=== PATIENT | male | born 1935 | race Caucasian/White ===

== ENCOUNTER 2017-12-01 14:00 | Emergency (ER) | payer BC, MEDICARE ==
--- NOTE | 2017-12-01 15:21 | CT ---
EXAMINATION TYPE: CT brain brendon samson DATE OF EXAM: 12/01/2017 COMPARISON: None HISTORY: Slip and fall. Frontal injury. Headache. Neck pain. CT DLP: 1596 mGycm Automated exposure control for dose reduction was used. TECHNIQUE: CT scan of the head and cervical spine are performed without contrast. FINDINGS: There is cerebral cortical atrophy. There is no mass effect nor midline shift. There is no sign of intracranial hemorrhage. There is mild frontal scalp soft tissue swelling. Calvarium is intac t. Cervical vertebra have fairly normal alignment. There is degenerative disc space narrowing at C5-6 C6 -7. There are calcified posterior disc herniations from C3 to C6. There is some narrowing of the spin al canal. Facet joints are intact. There is multilevel hypertrophic facet arthropathy. Skull base is intact. There is moderate hypertrophic anterior spurring. IMPRESSION: Cerebral atrophy. No acute intracranial abnormality. Spondylotic changes in the cervical spine. 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 No fracture.
[2017-12-01] MEDS ORDERED: TETANUS-DIPHTHERIA TOX (PF) 0.5 ML VIAL IM ONE (16:07)
--- NOTE | 2017-12-01 16:08 | ED ---
General Adult HPI - General Chief complaint: Fall Stated complaint: Fall, Head Lac Time Seen by Provider: 12/01/17 14:35 Source: patient, EMS, RN notes reviewed Mode of arrival: EMS Limitations: no limitations - History of Present Illness Initial comments: Chief complaint history of present illness 89-year-old male reports that he was standing on his staircase at home and taking water from a washing machine didn' t completely empty. This was outside. Slipped and fell. He presents emergency room with abrasion to the left side of his head. Denies any loss of consciousness. A neighbor called EMS. - Related Data Home Medications Medication Instructions Recorded Confirmed Gabapentin [Neurontin] 100 mg PO TID 12/01/17 12/01/17 glipiZIDE XL [Glucotrol Xl] 5 mg PO DAILY 12/01/17 12/01/17 metFORMIN HCL [Glucophage] 1,000 mg PO BID 12/01/17 12/01/17 Allergies Allergy/AdvReac Type Severity Reaction Status Date / Time No Known Allergies Allergy Verified 11/21/15 09:06 Review of Systems ROS Statement: Those systems with pertinent positive or pertinent negative responses have been documented in the HPI. Review of systems. Patient does not even complain of headache. Does have a significant abrasion to the left side of his head. No change in visual acuity. Patient does present with a Ivanhoe collar in place. Patient denies any chest pain back pain lower abdominal pain or lower extremity pain upper extremities are moving freely without difficulty. No weakness reported now or at the time of the incident. All systems were reviewed. Past medical problems significant for coronary artery disease, diabetes mellitus, hypertension. Surgeries appendectomy. The patient is somewhat forgetful. No known ALLERGIES. ROS Other: All systems not noted in ROS Statement are negative. Past Medical History Past Medical History: Coronary Artery Disease (CAD), Diabetes Mellitus, Hypertension Additional Past Medical History / Comment(s): poor historian History of Any Multi-Drug Resistant Organisms: None Reported Past Surgical History: Appendectomy Additional Past Surgical History / Comment(s): pt unable to recall "they were so long ago" Past Psychological History: No Psychological Hx Reported Smoking Status: Never smoker Past Alcohol Use History: Rare Past Drug Use History: None Reported General Exam - General Exam Comments Initial Comments: General: The patient is awake and alert, arrived EMS. Patient fell outside at home resulting in abrasions to left side of his head. No apparent loss of consciousness. Patient is not on blood thinners. Vital signs temperature 98.0 pulse 99 respiratory rate 18 blood pressure 185/69 pulse ox 90% room air Eye: Pupils are equal, round and reactive to light, extra-ocular movements are intact ; there is normal conjunctiva bilaterally. No signs of icterus. Ears, nose, mouth and throat: There are moist mucous membranes and no oral lesions. 4 cm x 4 cm abrasion to the left parietal area. Neck: The neck is supple, no complaint of neck pain Cardiovascular: There is a regular rate and rhythm. No murmur, rub or gallop is appreciated. Respiratory: Lungs are clear to auscultation, respirations are non-labored, breath sounds are equal. No wheezes, stridor, rales, or rhonchi. Gastrointestinal: Soft, non-distended, non-tender abdomen without masses or organomegaly noted. There is no rebound or guarding present. No CVA tenderness. Bowel sounds are unremarkable. Back: There is no tenderness to palpation in the midline. There is no obvious deformity. No rashes noted. Patient complains of chronic foot pain since he was age 20 . Musculoskeletal: Normal ROM, no tenderness, There is no pedal edema. There is no calf tenderness or swelling. Sensation intact. Pulses equal bilaterally 2+. Neurological: CN II-XII intact, There are no obvious motor or sensory deficits. Coordination appears grossly intact. Speech is normal. No focal or lateralizing findings Skin: Abrasion scalp as noted above Psychiatric: Cooperative, appropriate mood Limitations: no limitations Course Vital Signs 12/01/17 12/01/17 14:01 14:11 Temperature 98 F Pulse Rate 97 99 Respiratory 18 18 Rate Blood Pressure 207/84 185/69 O2 Sat by Pulse 99 98 Oximetry Medical Decision Making - Medical Decision Making Medical decision making; 22-year-old male reports had a slip and fall at home on his steps falling forward causing abrasion to his head. Denies any loss of consciousness. CT of the brain and cervical spine were done and reviewed by radiologist entire report was reviewed significant final impression is cervical atrophy. No acute intracranial abnormality. Spondylotic changes in the cervical spine. 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 No fracture. As read by Dr. Fernandez. Repeat neurological exam, no weakness. Good machine marker bilaterally. Good upper and lower extremity strength. The abrasion to this surface of the scalp was cleaned and covered with bacitracin and a nonstick bandage. Supplies were given to the patient to change at home. Told to wash daily that dry and apply ointment. Does report that he has a neighbor named Lorri who can help him do this. There was no loss of conscious. The patient's alert and oriented. No focal or lateralizing findings. Patient advised to call follow up with his family physician. Disposition Clinical Impression: Fall, Scalp abrasion Disposition: HOME SELF-CARE Condition: Stable Instructions: Fall Prevention for Older Adults (ED), Abrasion (ED) Additional Instructions: Clean daily. Apply medications provided and bandage provided. Follow-up with family physician Is patient prescribed a controlled substance at d/c from ED?: No Referrals: None,Stated [Primary Care Provider] - 1-2 days
[2017-12-01 17:01] VITALS: BP 159/77; PULSE 97; RESP 20; TEMP 98.6
== END 2017-12-01 16:50 | disposition home or self-care (01) ==
LOC: EC 14:00
DX: S00.01XA Abrasion of scalp, initial encounter (principal); I25.10 Atherosclerotic heart disease of native coronary artery without angina pectoris; E11.9 Type 2 diabetes mellitus without complications; I10 Essential (primary) hypertension; Z79.84 Long term (current) use of oral hypoglycemic drugs; Z79.899 Other long term (current) drug therapy; Z23 Encounter for immunization; W01.0XXA Fall on same level from slipping, tripping and stumbling without subsequent striking against object, initial encounter; Y92.009 Unspecified place in unspecified non-institutional (private) residence as the place of occurrence of the external cause
CPT/HCPCS: 70450; 72125; 90471; 90714; 99284

== ENCOUNTER → 2018-02-06 | Outpatient (CLI) | payer MEDICARE ==
--- NOTE | 2018-02-07 07:39 | US ---
EXAMINATION TYPE: US kidneys/renal and bladder DATE OF EXAM: 02/06/2018 COMPARISON: NONE CLINICAL HISTORY: R80.9 ELEV MICROALBUMIN. abn labs. Patient states frequent urination. EXAM MEASUREMENTS: Right Kidney: 10.2 x 4.3 x 5.5 cm Left Kidney: 10.0 x 4.6 x 5.1 cm Right Kidney: Hydronephrosis. Two lateral cysts, largest lower pole = 1.1 x 1.2 x 1.0 cm. Prominent pyramids. Echogenic non shadowing foci seen, 1- mid 0.4 cm 2-lower pole 0.5 cm. Left Kidney: upper pole lat cystic appearing lesion = 3.1 x 3.0 x 4.3 cm. Hydronephrosis. Echogenic non- shadowing foci seen, 1- upper medial = 0.8 cm 2- lower medial = 0.8 cm Bladder: Distended. Probable prominent prostate = 6.2 x 5.8 x 6.0 cm Bilateral Jets not seen IMPRESSION: 1. Moderate bilateral hydronephrosis. 2. Bilateral renal calculi and renal cysts. 3. Urinary bladder distention with prominence of the prostate gland.
== END | disposition home or self-care (01) ==
LOC: RADUSWWP 15:33
PROVIDERS: ATTEND Family Medicine
DX: N13.2 Hydronephrosis with renal and ureteral calculous obstruction (principal); N28.1 Cyst of kidney, acquired; N32.89 Other specified disorders of bladder
CPT/HCPCS: 76770

== ENCOUNTER 2018-08-24 22:02 | Inpatient (IN) | payer MEDICARE ==
[2018-08-24 23:20] LABS: Appearance,Urine Turbid (Clear); Bilirubin,Urine Negative (Negative); Blood,Urine Moderate (Negative); Color,Urine Yellow; Glucose,Urine (UA) Trace (Negative); Hyaline Casts,Urine 45 /lpf (0-2); Ketones,Urine Negative (Negative); Leukocyte Esterase,Urine Large (Negative); Nitrite,Urine Negative (Negative); PH, Urine 5.5 (5.0-8.0); Protein,Urine 2+ (Negative); RBC,Urine 20 /hpf (0-5); Specific Gravity,Urine 1.018 (1.001-1.035); Urobilinogen,Urine <2.0 mg/dL (<2.0); WBC,Urine >182 /hpf (0-5)
[2018-08-24 23:28] LABS: Basophils # (A) 0.1 k/uL (0-0.2); Basophils % (A) 0 %; Eosinophils # (A) 0.1 k/uL (0-0.7); Eosinophils % (A) 1 %; HCT 28.7 % (39.0-53.0); HGB 9.4 gm/dL (13.0-17.5); Lymphocytes % (A) 4 %; MCH 29.8 pg (25.0-35.0); MCHC 32.8 g/dL (31.0-37.0); Mean Platelet Volume 7.8; Monocytes # (A) 1.3 k/uL (0-1.0); Monocytes % (A) 6 %; Neutrophils # (A) 21.1 k/uL (1.3-7.7); Neutrophils % (A) 87 %; Platelet Count 259 k/uL (150-450); RBC 3.15 m/uL (4.30-5.90); RDW 13.9 % (11.5-15.5); WBC 24.2 k/uL (3.8-10.6)
[2018-08-24 23:38] LABS: Albumin 3.1 g/dL (3.5-5.0); Calcium 8.4 mg/dL (8.4-10.2); Potassium 4.5 mmol/L (3.5-5.1); Total Bilirubin 0.2 mg/dL (0.2-1.3); Total Protein 6.9 g/dL (6.3-8.2)
[2018-08-24] MEDS: SODIUM CHLORIDE 0.9% 500 ML 500 ML IV SCH ×2 (23:38→23:39)
[2018-08-25] MEDS ORDERED: NALOXONE 0.4 MG/ML 1 ML VIAL IV PRN (00:17)
[2018-08-25] MEDS ORDERED: IBUPROFEN 400 MG TAB PO PRN (00:17)
--- NOTE | 2018-08-25 00:26 | ED ---
General Adult HPI - General Chief complaint: Altered Mental Status Stated complaint: Fever,poss UTI Time Seen by Provider: 08/24/18 22:11 Source: EMS Mode of arrival: EMS Limitations: no limitations - History of Present Illness Initial comments: Chad is a pleasantly demented 83-year-old gentleman who presents the emergency department today from [facility] for evaluation of possible sepsis and possible urinary tract infection. Per caregivers the patient had a Valdivia catheter in place until 2 days ago. Today they noticed that the patient was co nfused than usual, when he checked his vital signs he was febrile with a temperature of 101, when checked his blood pressure he was hypotensive and was noted be tachycardic. He was given antipyretics approximately one hour prior to EMS being called. Upon EMS arrival he knows the patient's fever had resolved his blood pressure had improved as had his heart rate. Patient was unable to urinate had only dribbling in his diaper. Patient states that he feels okay but is uncomfortable when he tries to urinate. - Related Data Home Medications Medication Instructions Recorded Confirmed DULoxetine HCL [Cymbalta] 30 mg PO DAILY 08/24/18 08/24/18 Donepezil [Aricept] 10 mg PO HS 08/24/18 08/24/18 Famotidine [Pepcid] 20 mg PO DAILY 08/24/18 08/24/18 Ferrous Sulfate [Feosol] 325 mg PO BID-W/MEALS 08/24/18 08/24/18 Finasteride [Proscar] 5 mg PO DAILY 08/24/18 08/24/18 Lisinopril [Prinivil] 5 mg PO DAILY 08/24/18 08/24/18 Tamsulosin HCl [Flomax] 0.4 mg PO DAILY 08/24/18 08/24/18 glipiZIDE XL [Glucotrol Xl] 5 mg PO DAILY 08/24/18 08/24/18 sitaGLIPtin PHOSPHATE [Januvia] 50 mg PO DAILY 08/24/18 08/24/18 Allergies Allergy/AdvReac Type Severity Reaction Status Date / Time No Known Allergies Allergy Verified 11/21/15 09:06 Review of Systems ROS Statement: Those systems with pertinent positive or pertinent negative responses have been documented in the HPI. Limitations: ROS unobtainable due to patients medical condition (Dementia) Past Medical History Past Medical History: Coronary Artery Disease (CAD), Diabetes Mellitus, Hypertension Additional Past Medical History / Comment(s): poor historian History of Any Multi-Drug Resistant Organisms: CRE Date of last positivie culture/infection: 08/01/18 CRE ENTEROBACTER CLOACAE CONFIRMED [facility] MDRO Source:: Urine Past Surgical History: Appendectomy Additional Past Surgical History / Comment(s): pt unable to recall "they were so long ago" Past Psychological History: No Psychological Hx Reported Smoking Status: Never smoker Past Alcohol Use History: Rare Past Drug Use History: None Reported General Exam - General Exam Comments Initial Comments: Physical Exam GENERAL: Patient is well-developed and well-nourished. Patient is nontoxic and well-hydrated and is in no distress. HENT: Normocephalic, Atraumatic. EYES: PERRL, EOMI PULMONARY: Unlabored respirations. No audible rales rhonchi or wheezing was noted. CARDIOVASCULAR: There is a regular rate and rhythm without any murmurs gallops or rubs. ABDOMEN: Palpable bladder SKIN: Skin is clear with no lesions or rashes and otherwise unremarkable. : Deferred NEUROLOGIC: And oriented to person and able to identify that he is at the hospital and that he came in an ambulance, uncertain of the day date and reason he is here MUSCULOSKELETAL: Normal extremities with adequate strength and full range of motion. No lower extremity swelling or edema. No calf tenderness. PSYCHIATRIC: Slightly demented Limitations: no limitations Course Vital Signs 08/24/18 22:15 Temperature 98.7 F Pulse Rate 96 Respiratory 16 Rate Blood Pressure 122/53 O2 Sat by Pulse 98 Oximetry EKG Findings - EKG Comments: EKG Findings:: EKG was obtained at 2233 for evaluation of sepsis, EKG rate of 96 rhythm is sinus there is normal axis normal intervals W[place] 172, QRS 72, QTc is 411 there's no acute ST elevations or depressions no evidence of acute ischemia or infarction or significant respiratory artifact. Medical Decision Making - Medical Decision Making The patient was seen and evaluated history is obtained from [facility] and patient next line patient had a Valdivia catheter removed 2 days ago he's had difficulty urinating he was febrile tachycardic hypotensive today A sepsis workup was initiated Patient is tachycardic with heart rates in the 90s, leukocytosis and a known urinary tract infection Rocephin was ordered patient will be admitted for sepsis secondary to urinary tract infection. Patient was unable to provide more than a couple cc of urine at a time and decision was made to replace the Valdivia catheter for retention. Patient significant relief after placement of the Valdivia catheter. - Lab Data Result diagrams: 08/24/18 20:35 08/24/18 20:35 Lab Results 08/24/18 08/24/18 08/24/18 Range/Units 20:35 20:35 20:35 WBC 24.2 H (3.8-10.6) k/uL RBC 3.15 L (4.30-5.90) m/uL Hgb 9.4 L (13.0-17.5) gm/dL Hct 28.7 L (39.0-53.0) % MCV 91.0 D (80.0-100.0) fL MCH 29.8 (25.0-35.0) pg MCHC 32.8 (31.0-37.0) g/dL RDW 13.9 (11.5-15.5) % Plt Count 259 (150-450) k/uL Neutrophils % 87 % Lymphocytes % 4 % Monocytes % 6 % Eosinophils % 1 % Basophils % 0 % Neutrophils # 21.1 H (1.3-7.7) k/uL Lymphocytes # 1.0 (1.0-4.8) k/uL Monocytes # 1.3 H (0-1.0) k/uL Eosinophils # 0.1 (0-0.7) k/uL Basophils # 0.1 (0-0.2) k/uL Sodium 131 L (137-145) mmol/L Potassium 4.5 (3.5-5.1) mmol/L Chloride 97 L (98-107) mmol/L Carbon Dioxide 25 (22-30) mmol/L Anion Gap 9 mmol/L BUN 54 H (9-20) mg/dL Creatinine 2.39 H (0.66-1.25) mg/dL Est GFR (CKD-EPI)AfAm 28 (>60 ml/min/1.73 sqM) Est GFR (CKD-EPI)NonAf 24 (>60 ml/min/1.73 sqM) Glucose 240 H (74-99) mg/dL Plasma Lactic Acid Chance 1.6 (0.7-2.0) mmol/L Calcium 8.4 (8.4-10.2) mg/dL Total Bilirubin 0.2 (0.2-1.3) mg/dL AST 19 (17-59) U/L ALT 14 L (21-72) U/L Alkaline Phosphatase 80 (38-126) U/L Total Protein 6.9 (6.3-8.2) g/dL Albumin 3.1 L (3.5-5.0) g/dL Urine Color Urine Appearance (Clear) Urine pH (5.0-8.0) Ur Specific Baxter (1.001-1.035) Urine Protein (Negative) Urine Glucose (UA) (Negative) Urine Ketones (Negative) Urine Blood (Negative) Urine Nitrite (Negative) Urine Bilirubin (Negative) Urine Urobilinogen (<2.0) mg/dL Ur Leukocyte Esterase (Negative) Urine RBC (0-5) /hpf Urine WBC (0-5) /hpf Urine WBC Clumps (None) /hpf Hyaline Casts (0-2) /lpf 08/24/18 Range/Units 23:00 WBC (3.8-10.6) k/uL RBC (4.30-5.90) m/uL Hgb (13.0-17.5) gm/dL Hct (39.0-53.0) % MCV (80.0-100.0) fL MCH (25.0-35.0) pg MCHC (31.0-37.0) g/dL RDW (11.5-15.5) % Plt Count (150-450) k/uL Neutrophils % % Lymphocytes % % Monocytes % % Eosinophils % % Basophils % % Neutrophils # (1.3-7.7) k/uL Lymphocytes # (1.0-4.8) k/uL Monocytes # (0-1.0) k/uL Eosinophils # (0-0.7) k/uL Basophils # (0-0.2) k/uL Sodium (137-145) mmol/L Potassium (3.5-5.1) mmol/L Chloride (98-107) mmol/L Carbon Dioxide (22-30) mmol/L Anion Gap mmol/L BUN (9-20) mg/dL Creatinine (0.66-1.25) mg/dL Est GFR (CKD-EPI)AfAm (>60 ml/min/1.73 sqM) Est GFR (CKD-EPI)NonAf (>60 ml/min/1.73 sqM) Glucose (74-99) mg/dL Plasma Lactic Acid Chance (0.7-2.0) mmol/L Calcium (8.4-10.2) mg/dL Total Bilirubin (0.2-1.3) mg/dL AST (17-59) U/L ALT (21-72) U/L Alkaline Phosphatase (38-126) U/L Total Protein (6.3-8.2) g/dL Albumin (3.5-5.0) g/dL Urine Color Yellow Urine Appearance Turbid (Clear) Urine pH 5.5 (5.0-8.0) Ur Specific Baxter 1.018 (1.001-1.035) Urine Protein 2+ H (Negative) Urine Glucose (UA) Trace H (Negative) Urine Ketones Negative (Negative) Urine Blood Moderate H (Negative) Urine Nitrite Negative (Negative) Urine Bilirubin Negative (Negative) Urine Urobilinogen <2.0 (<2.0) mg/dL Ur Leukocyte Esterase Large H (Negative) Urine RBC 20 H (0-5) /hpf Urine WBC >182 H (0-5) /hpf Urine WBC Clumps Many H (None) /hpf Hyaline Casts 45 H (0-2) /lpf Disposition Clinical Impression: Altered mental status, Dementia, UTI (urinary tract infection), Sepsis Disposition: ADMITTED IP TO THIS HOSP Condition: Stable Referrals: Selvin Sher MD [Primary Care Provider] - 1-2 days
[2018-08-25] MEDS: SODIUM CHLORIDE 0.9% 1,000 ML IV SCH ×4 (02:14→20:54)
[2018-08-25 10:37] VITALS: BMI 27.4
[2018-08-25 10:41] LABS: Glucose,Whole Blood 139 mg/dL (75-99)
[2018-08-25] MEDS: INSULIN ASPART (NovoLOG) 100 UNIT/ML VIAL SQ SCH ×4 (10:57→20:57)
[2018-08-25] MEDS: HEPARIN SODIUM,PORCINE 5,000 UNIT/ML 1 ML VIAL SQ SCH ×2 (10:59→20:54)
[2018-08-25 11:52] LABS: Glucose,Whole Blood 150 mg/dL (75-99)
[2018-08-25] MEDS: LEVOFLOXACIN 500MG-D5W PMX 500 MG in DEXTROSE/WATER 1 100ML.BAG IVPB SCH (13:54)
--- NOTE | 2018-08-25 16:25 | P.HPIM ---
History of Present Illness 83-year-old male was sent in from [facility] for possible sepsis and possible urinary tract infection patient has a Valdivia catheter which was removed recently for voiding trail and patient is found to have urinary retention found to have fev ers with significantly abnormal urine and the patient's a Valdivia cath was placed back and the patient does have prostate hypertrophy urology was consulted patient does have bilateral hydronephrosis which appears to be secondary to a prostate problem. Patient does have history of Pseudomonas in the urine and Enterobacter he is seen in the urine and the this Enterobacter EACs resistant to carb up in arms and since to do levofloxacin because of which patient was started on levofloxacin patient was comparing of pressures patient is alert and oriented 1-2 which is his baseline because of his dementia. 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 Date of last positivie culture/infection: 08/01/18 CRE ENTEROBACTER CLOACAE CONFIRMED [facility] MDRO Source:: Urine Past Surgical History: Appendectomy Additional Past Surgical History / Comment(s): pt unable to recall "they were so long ago" Past Anesthesia/Blood Transfusion Reactions: No Reported Reaction Past Psychological History: Depression Smoking Status: Never smoker Past Alcohol Use History: None Reported Past Drug Use History: None Reported - Past Family History Mother History Unknown: Yes Father History Unknown: Yes Medications and Allergies Home Medications Medication Instructions Recorded Confirmed Type DULoxetine HCL [Cymbalta] 30 mg PO DAILY 08/24/18 08/24/18 History Donepezil [Aricept] 10 mg PO HS 08/24/18 08/24/18 History Famotidine [Pepcid] 20 mg PO DAILY 08/24/18 08/24/18 History Ferrous Sulfate [Feosol] 325 mg PO BID-W/MEALS 08/24/18 08/24/18 History Finasteride [Proscar] 5 mg PO DAILY 08/24/18 08/24/18 History Lisinopril [Prinivil] 5 mg PO DAILY 08/24/18 08/24/18 History Tamsulosin HCl [Flomax] 0.4 mg PO DAILY 08/24/18 08/24/18 History glipiZIDE XL [Glucotrol Xl] 5 mg PO DAILY 08/24/18 08/24/18 History sitaGLIPtin PHOSPHATE [Januvia] 50 mg PO DAILY 08/24/18 08/24/18 History Allergies Allergy/AdvReac Type Severity Reaction Status Date / Time No Known Allergies Allergy Verified 11/21/15 09:06 Physical Exam Vitals: Vital Signs Temp Pulse Pulse Resp BP BP Pulse Ox 08/25/18 14:24 99.5 F 88 16 111/56 100 08/25/18 09:50 99.4 F 84 18 132/59 95 08/25/18 09:34 98.9 F 87 20 128/61 95 08/25/18 06:34 92 18 122/61 98 08/25/18 06:25 92 16 135/45 96 08/25/18 05:33 86 16 08/25/18 04:34 92 16 131/58 96 08/25/18 00:18 80 16 127/67 96 08/25/18 00:00 91 20 106/55 95 08/24/18 23:00 18 122/53 98 08/24/18 22:44 16 122/53 99 08/24/18 22:15 98.7 F 96 16 122/53 98 Intake and Output 08/25/18 08/25/18 08/25/18 06:59 14:59 22:59 Output Total 1300 Balance -1300 Output: Urine 1300 Other: Voiding Method Indwelling Catheter PHYSICAL EXAMINATION: GENERAL: The patient is alert and oriented x 1-2, not in any acute distress. Well developed, well nourished. HEENT: Pupils are round and equally reacting to light. EOMI. No scleral icterus. No conjunctival pallor. Normocephalic, atraumatic. No pharyngeal erythema. No thyromegaly. CARDIOVASCULAR: S1 and S2 present. No murmurs, rubs, or gallops. PULMONARY: Chest is clear to auscultation, no wheezing or crackles. ABDOMEN: Soft, nontender, nondistended, normoactive bowel sounds. No palpable organomegaly. MUSCULOSKELETAL: No joint swelling or deformity. EXTREMITIES: No cyanosis, clubbing, or pedal edema. NEUROLOGICAL: Gross neurological examination did not reveal any focal deficits. SKIN: No rashes. Results CBC & Chem 7: 08/24/18 20:35 08/24/18 20:35 Labs: Abnormal Lab Results - Last 24 Hours (Table) 08/24/18 08/24/18 08/24/18 Range/Units 20:35 20:35 23:00 WBC 24.2 H (3.8-10.6) k/uL RBC 3.15 L (4.30-5.90) m/uL Hgb 9.4 L (13.0-17.5) gm/dL Hct 28.7 L (39.0-53.0) % Neutrophils # 21.1 H (1.3-7.7) k/uL Monocytes # 1.3 H (0-1.0) k/uL Sodium 131 L (137-145) mmol/L Chloride 97 L (98-107) mmol/L BUN 54 H (9-20) mg/dL Creatinine 2.39 H (0.66-1.25) mg/dL Glucose 240 H (74-99) mg/dL POC Glucose (mg/dL) (75-99) mg/dL ALT 14 L (21-72) U/L Albumin 3.1 L (3.5-5.0) g/dL Urine Protein 2+ H (Negative) Urine Glucose (UA) Trace H (Negative) Urine Blood Moderate H (Negative) Ur Leukocyte Esterase Large H (Negative) Urine RBC 20 H (0-5) /hpf Urine WBC >182 H (0-5) /hpf Urine WBC Clumps Many H (None) /hpf Hyaline Casts 45 H (0-2) /lpf 08/25/18 08/25/18 Range/Units 10:40 11:49 WBC (3.8-10.6) k/uL RBC (4.30-5.90) m/uL Hgb (13.0-17.5) gm/dL Hct (39.0-53.0) % Neutrophils # (1.3-7.7) k/uL Monocytes # (0-1.0) k/uL Sodium (137-145) mmol/L Chloride (98-107) mmol/L BUN (9-20) mg/dL Creatinine (0.66-1.25) mg/dL Glucose (74-99) mg/dL POC Glucose (mg/dL) 139 H 150 H (75-99) mg/dL ALT (21-72) U/L Albumin (3.5-5.0) g/dL Urine Protein (Negative) Urine Glucose (UA) (Negative) Urine Blood (Negative) Ur Leukocyte Esterase (Negative) Urine RBC (0-5) /hpf Urine WBC (0-5) /hpf Urine WBC Clumps (None) /hpf Hyaline Casts (0-2) /lpf Microbiology - Last 24 Hours (Table) 08/24/18 20:45 Blood Culture Gram Stain - Preliminary Blood 08/24/18 20:45 Blood Culture - Final Blood 08/24/18 23:00 Urine Culture - Preliminary Urine,Catheterized Thrombosis Risk Factor Assmnt - Choose All That Apply Any of the Below Risk Factors Present?: Yes Other Risk Factors: Yes Each Risk Factor Represents 3 Points: Age 75 years or older Other congenital or acquired thrombophilia - If yes, enter type in comment: No Thrombosis Risk Factor Assessment Total Risk Factor Score: 3 Thrombosis Risk Factor Assessment Level: Moderate Risk Assessment and Plan Plan: -Sepsis secondary to urinary tract infection and urinary obstruction seconded prostatic hypertrophy Valdivia catheter was replaced and patient will be on prostate medications patient was started on levofloxacin by urologist is appropriate and will be continued -Leukocytosis secondary to sepsis -Hyponatremia probably secondary to urinary obstruction continue with IV fluids now his urinary obstruction is are relieved I'm expecting his hyponatremia did improve -Possible acute renal failure unsure whether patient has chronic kidney disease acute renal failure is multifactorial probably secondary to sepsis and urinary tract infection along with obstructive uropathy which is expected to improve any with IV fluids -Type 2 diabetes mellitus patient will be resumed on home regimen with the monitoring of blood sugars -Dementia may have vascular dementia -Benign prostatic hypertrophy -Coronary artery disease Patient will need pharmacologic GI and DVT prophylaxis
[2018-08-25 17:03] LABS: Glucose,Whole Blood 218 mg/dL (75-99)
[2018-08-25] MEDS: MEROPENEM 1 GM in SODIUM CHLORIDE 0.9% 100 ML IVPB SCH (17:37)
[2018-08-25] MEDS: ACETAMINOPHEN TAB 325 MG TAB PO PRN (17:38)
[2018-08-25 20:15] LABS: Glucose,Whole Blood 195 mg/dL (75-99)
[2018-08-25] MEDS: DONEPEZIL 10 MG TAB PO SCH (20:54)
--- NOTE | 2018-08-25 23:02 | P.CONS ---
History of Present Illness - Reason for Consult Consult date: 08/25/18 UTI and bacteremia Requesting physician: Leann Sagastume - Chief Complaint Free with confusion and mental status changes x 1 day - History of Present Illness Patient is a 31-year-old male with a past medical history significant for urinary retention requiring Valdivia catheter and history of UTI, and this patient who is a prison resident apparently the patient Valdivia cath was discontinued about 2 days before presentation to the hospital on the day of pre sentation to the hospital the patient was noticed to be confused he was febrile with a temperature of 10 1F and hypotensive EMS was called in overall the patient to the ER patient noticed to have a low-grade fever of 99.5 he did have elevated white count 24,000 and did have significantly positive UA Valdivia catheter has to be reinserted because of urinary retention and the patient was noticed to have dribbling of urine and also the patient complaining of pain on urination but no suprapubic or flank pain no nausea no vomiting or any diarrhea patient had been started on Rocephin and subsequently the blood culture, gram- positive with gram-negative bacilli that prompted this infection this consul tation patient recently did have a urinary cultures then in July 2018 which was multidrug resistant Enterobacter with resistant ertapenem and pseudomonas aeruginosa, Review of Systems Positive points has been mentioned in HPI rest of the systems are negative 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 Discovered:: 08/01/18 CRE ENTEROBACTER CLOACAE CONFIRMED [facility] BY [facility] MDRO Source:: Urine Past Surgical History: Appendectomy Additional Past Surgical History / Comment(s): pt unable to recall "they were so long ago" Past Anesthesia/Blood Transfusion Reactions: No Reported Reaction Past Psychological History: Depression Smoking Status: Never smoker Past Alcohol Use History: None Reported Past Drug Use History: None Reported - Past Family History Mother History Unknown: Yes Father History Unknown: Yes Medications and Allergies Home Medications Medication Instructions Recorded Confirmed Type DULoxetine HCL [Cymbalta] 30 mg PO DAILY 08/24/18 08/24/18 History Donepezil [Aricept] 10 mg PO HS 08/24/18 08/24/18 History Famotidine [Pepcid] 20 mg PO DAILY 08/24/18 08/24/18 History Ferrous Sulfate [Feosol] 325 mg PO BID-W/MEALS 08/24/18 08/24/18 History Finasteride [Proscar] 5 mg PO DAILY 08/24/18 08/24/18 History Lisinopril [Prinivil] 5 mg PO DAILY 08/24/18 08/24/18 History Tamsulosin HCl [Flomax] 0.4 mg PO DAILY 08/24/18 08/24/18 History glipiZIDE XL [Glucotrol Xl] 5 mg PO DAILY 08/24/18 08/24/18 History sitaGLIPtin PHOSPHATE [Januvia] 50 mg PO DAILY 08/24/18 08/24/18 History Allergies Allergy/AdvReac Type Severity Reaction Status Date / Time No Known Allergies Allergy Verified 11/21/15 09:06 Physical Exam Vitals: Vital Signs Temp Pulse Pulse Resp BP BP Pulse Ox 08/25/18 14:24 99.5 F 88 16 111/56 100 08/25/18 09:50 99.4 F 84 18 132/59 95 08/25/18 09:34 98.9 F 87 20 128/61 95 08/25/18 06:34 92 18 122/61 98 08/25/18 06:25 92 16 135/45 96 08/25/18 05:33 86 16 08/25/18 04:34 92 16 131/58 96 08/25/18 00:18 80 16 127/67 96 08/25/18 00:00 91 20 106/55 95 08/24/18 23:00 18 122/53 98 08/24/18 22:44 16 122/53 99 08/24/18 22:15 98.7 F 96 16 122/53 98 Intake and Output 08/25/18 08/25/18 08/25/18 06:59 14:59 22:59 Output Total 1300 Balance -1300 Output: Urine 1300 Other: Voiding Method Indwelling Catheter GENERAL DESCRIPTION: Elderly male lying in bed, no distress. No tachypnea or accessory muscle of respiration use. HEENT: Shows Pallor , no scleral icterus. Oral mucous membrane is dry. No pharyngeal erythema or thrush NECK: Trachea central, no thyromegaly. LUNGS: Unlabored breathing. Clear to auscultation anteriorly. No wheeze or crackle. HEART: S1, S2, regular rate and rhythm. No loud murmur ABDOMEN: Soft, no tenderness , guarding or rigidity, no organomegaly EXTREMITIES: No edema of feet. SKIN: No rash, no masses palpable. NEUROLOGICAL: The patient is awake, alert, oriented x2, mood and affect normal Results CBC & Chem 7: 08/24/18 20:35 08/24/18 20:35 Labs: Abnormal Lab Results - Last 24 Hours (Table) 08/24/18 08/24/18 08/24/18 Range/Units 20:35 20:35 23:00 WBC 24.2 H (3.8-10.6) k/uL RBC 3.15 L (4.30-5.90) m/uL Hgb 9.4 L (13.0-17.5) gm/dL Hct 28.7 L (39.0-53.0) % Neutrophils # 21.1 H (1.3-7.7) k/uL Monocytes # 1.3 H (0-1.0) k/uL Sodium 131 L (137-145) mmol/L Chloride 97 L (98-107) mmol/L BUN 54 H (9-20) mg/dL Creatinine 2.39 H (0.66-1.25) mg/dL Glucose 240 H (74-99) mg/dL POC Glucose (mg/dL) (75-99) mg/dL ALT 14 L (21-72) U/L Albumin 3.1 L (3.5-5.0) g/dL Urine Protein 2+ H (Negative) Urine Glucose (UA) Trace H (Negative) Urine Blood Moderate H (Negative) Ur Leukocyte Esterase Large H (Negative) Urine RBC 20 H (0-5) /hpf Urine WBC >182 H (0-5) /hpf Urine WBC Clumps Many H (None) /hpf Hyaline Casts 45 H (0-2) /lpf 08/25/18 08/25/18 Range/Units 10:40 11:49 WBC (3.8-10.6) k/uL RBC (4.30-5.90) m/uL Hgb (13.0-17.5) gm/dL Hct (39.0-53.0) % Neutrophils # (1.3-7.7) k/uL Monocytes # (0-1.0) k/uL Sodium (137-145) mmol/L Chloride (98-107) mmol/L BUN (9-20) mg/dL Creatinine (0.66-1.25) mg/dL Glucose (74-99) mg/dL POC Glucose (mg/dL) 139 H 150 H (75-99) mg/dL ALT (21-72) U/L Albumin (3.5-5.0) g/dL Urine Protein (Negative) Urine Glucose (UA) (Negative) Urine Blood (Negative) Ur Leukocyte Esterase (Negative) Urine RBC (0-5) /hpf Urine WBC (0-5) /hpf Urine WBC Clumps (None) /hpf Hyaline Casts (0-2) /lpf Microbiology - Last 24 Hours (Table) 08/24/18 20:45 Blood Culture Gram Stain - Preliminary Blood 08/24/18 20:45 Blood Culture - Final Blood 08/24/18 23:00 Urine Culture - Preliminary Urine,Catheterized Assessment and Plan Assessment: 1-patient admitted hospital with mental status changes and a fever in this patient who did have history of urinary retention and UTIs now did have a positive UA with evidence of gram-negative bacteremia likely source is complicated urinary tract infection 2-patient with gram-negative bacteremia likely secondary to urinary source 3-patient with recent outpatient urine culture positive for CRE and pseudomonas aeruginosa (1) Bacteremia due to Gram-negative bacteria Current Visit: Yes Status: Acute Code(s): R78.81 - BACTEREMIA SNOMED Code(s): 242709843627 (2) Sepsis Current Visit: Yes Status: Acute Code(s): A41.9 - SEPSIS, UNSPECIFIED ORGANISM SNOMED Code(s): 04051353 (3) UTI (urinary tract infection) Current Visit: Yes Status: Acute Code(s): N39.0 - URINARY TRACT INFECTION, SITE NOT SPECIFIED SNOMED Code(s): 88493707 Plan: 1-we will add meropenem 1 g every 12 hours, as most of these pathogens are sensitive to meropenem and currently we do not have either Tygacil or Avycaz available at this facility as per discussion with the pharmacist on the phone 2-IV fluid 3-check ultrasound of the kidney and the bladder area we will follow up on clinical condition and cultures to further adjust medication if needed Thank you for this consultation will follow this patient along with you Time with Patient: Greater than 30
[2018-08-26] MEDS: ACETAMINOPHEN TAB 325 MG TAB PO PRN (04:38)
[2018-08-26] MEDS: MEROPENEM 1 GM in SODIUM CHLORIDE 0.9% 100 ML IVPB SCH ×2 (05:26→17:11)
[2018-08-26] MEDS: SODIUM CHLORIDE 0.9% 1,000 ML IV SCH ×3 (05:35→23:16)
[2018-08-26 07:30] LABS: Glucose,Whole Blood 185 mg/dL (75-99)
[2018-08-26] MEDS: FINASTERIDE 5 MG TAB PO SCH (07:34)
[2018-08-26] MEDS: LINAGLIPTIN 5 MG TABLET PO SCH (07:35)
[2018-08-26] MEDS: TAMSULOSIN 0.4 MG CAP.ER.24H PO SCH (07:35)
[2018-08-26] MEDS: HEPARIN SODIUM,PORCINE 5,000 UNIT/ML 1 ML VIAL SQ SCH ×2 (07:35→20:37)
[2018-08-26] MEDS: INSULIN ASPART (NovoLOG) 100 UNIT/ML VIAL SQ SCH ×4 (07:35→20:52)
[2018-08-26] MEDS: FAMOTIDINE 20 MG TAB PO SCH (07:35)
[2018-08-26] MEDS: DULoxetine HCL 30 MG CAPSULE.DR PO SCH (07:35)
--- NOTE | 2018-08-26 07:58 | P.PN ---
Subjective Progress Note Date: 08/26/18 Principal diagnosis: UTI with sepsis This is a continue present 83-year-old white male essentially admitted for UTI with sepsis and gram-negative positivity with history of urinary retention. Appreciate infectious disease consultation. Objective - Vital Signs Vital signs: Vital Signs Temp 99.4 F 08/26/18 05:00 Pulse 101 H 08/26/18 05:00 Resp 20 08/26/18 05:00 BP 138/62 08/26/18 05:00 Pulse Ox 90 L 08/26/18 05:00 Intake & Output 08/25/18 08/26/18 08/26/18 18:59 06:59 18:59 Intake Total 540 800 Output Total 1750 1000 Balance -1210 -200 Intake: Oral 540 800 Output: Urine 1750 1000 Other: Voiding Method Indwelling Catheter Indwelling Catheter Indwelling Catheter # Voids 0 # Bowel Movements 3 - Constitutional General appearance: Present: average body habitus, no acute distress - EENT Eyes: Absent: abnormal pupil - Neck Neck: Absent: lymphadenopathy - Respiratory Respiratory: bilateral: CTA - Cardiovascular Rhythm: regular Heart sounds: normal: S1, S2 Abnormal Heart Sounds: Absent: S3 Gallop - Gastrointestinal General gastrointestinal: Present: soft. Absent: tenderness - Integumentary Integumentary: Present: normal. Absent: rash - Labs CBC & Chem 7: 08/24/18 20:35 08/24/18 20:35 Labs: Abnormal Lab Results - Last 24 Hours (Table) 08/25/18 08/25/18 08/25/18 Range/Units 10:40 11:49 16:50 POC Glucose (mg/dL) 139 H 150 H 218 H (75-99) mg/dL 08/25/18 08/26/18 Range/Units 20:10 07:12 POC Glucose (mg/dL) 195 H 185 H (75-99) mg/dL Microbiology - Last 24 Hours (Table) 08/24/18 20:45 Blood Culture Gram Stain - Preliminary Blood Blood Culture - Preliminary Gram Neg Bacilli 08/24/18 20:45 Blood Culture - Final Blood 08/24/18 23:00 Urine Culture - Preliminary Urine,Catheterized Assessment and Plan (1) Altered mental status Current Visit: Yes Status: Acute Code(s): R41.82 - ALTERED MENTAL STATUS, UNSPECIFIED SNOMED Code(s): 447354043 (2) Bacteremia due to Gram-negative bacteria Current Visit: Yes Status: Acute Code(s): R78.81 - BACTEREMIA SNOMED Code(s): 107913615023 (3) Dementia Current Visit: Yes Status: Acute Code(s): F03.90 - UNSPECIFIED DEMENTIA WITHOUT BEHAVIORAL DISTURBANCE SNOMED Code(s): 88061079 (4) Sepsis Current Visit: Yes Status: Acute Code(s): A41.9 - SEPSIS, UNSPECIFIED ORGANISM SNOMED Code(s): 05128101 (5) UTI (urinary tract infection) Current Visit: Yes Status: Acute Code(s): N39.0 - URINARY TRACT INFECTION, SITE NOT SPECIFIED SNOMED Code(s): 17262374 (6) Retention of urine Current Visit: No Status: Acute Code(s): R33.9 - RETENTION OF URINE, UNSPECIFIED SNOMED Code(s): 884100489 Plan: Continue current regimen of antibiotics. Check CBC and CMP in a.m. I would like to have the patient have at least 72 hours of IV therapy to ascertain culture results and then choose appropriate outpatient antibiotic treatment. Prognosis is guarded secondary to his multiple comorbidities. Time with Patient: Less than 30
[2018-08-26 08:47] LABS: HCT 27.9 % (39.0-53.0); HGB 8.9 gm/dL (13.0-17.5); MCH 29.6 pg (25.0-35.0); MCV 92.4 fL (80.0-100.0); Mean Platelet Volume 7.5; Platelet Count 267 k/uL (150-450); RBC 3.02 m/uL (4.30-5.90); RDW 13.8 % (11.5-15.5); WBC 17.2 k/uL (3.8-10.6)
[2018-08-26 08:57] LABS: Calcium 7.7 mg/dL (8.4-10.2); Potassium 4.4 mmol/L (3.5-5.1)
--- NOTE | 2018-08-26 11:33 | US ---
EXAMINATION TYPE: US kidneys/renal and bladder DATE OF EXAM: 08/26/2018 COMPARISON: NONE CLINICAL HISTORY: Recurrent UTI and hydronephrosis. EXAM MEASUREMENTS: Right Kidney: 11.4 x 5.3 x 5.4 cm Left Kidney: 11.6 x 6.1 x 5.3 cm Patient laying supine with SOB, technically difficult. Right Kidney: 2 cysts visualized largest measuring 1.1cm Left Kidney: technologist unable to well scan due to patient position, patient unable to move arm out of the way. Very limited visualization, not thoroughly evaluated, stone noted 0.5cm Bladder: Valdivia noted There is no evidence for hydronephrosis at this point in time. No suspicious masses are identified. The urinary bladder is nondistended. IMPRESSION: 1. Right renal cysts the largest measuring 1.1 cm and left-sided nephrolithiasis. No hydronephrosis o f either kidney. 2. Severely limited exam of the left kidney with limitations as described above. The previously seen left-sided renal lesions are not identified given the limitations.
[2018-08-26 12:30] LABS: Glucose,Whole Blood 165 mg/dL (75-99)
[2018-08-26] MEDS: LEVOFLOXACIN 500MG-D5W PMX 500 MG in DEXTROSE/WATER 1 100ML.BAG IVPB SCH (12:33)
--- NOTE | 2018-08-26 13:13 | PN ---
PROGRESS NOTE DATE OF SERVICE: 08/26/2018 REASON FOR FOLLOWUP: Gram-negative complicated UTI and bacteremia. INTERVAL HISTORY: The patient is currently afebrile. The patient is breathing comfortably. Denies having any chest pain or shortness of breath or cough. No abdominal pain or any diarrhea. PHYSICAL EXAMINATION: On examination, blood pressure is 138/62 with a pulse of 101, temperature 99.4. He is 90% on 2 L nasal cannula. General description is an elderly male lying in bed in no distress. RESPIRATORY SYSTEM: Unlabored breathing, clear to auscultation anteriorly. HEART: S1, S2. Regular rate and rhythm. ABDOMEN: Soft, no tenderness. LABS: Hemoglobin 8.9, white count 17.2, BUN of 37 creatinine 1.67. Urine and blood with gram negative ID sensitivity pending. DIAGNOSTIC IMPRESSION AND PLAN: Patient with complicated gram-negative urinary tract infection with secondary bacteremia multi-drug resistant pathogen. Patient currently covered with meropenem and Levaquin to continue while waiting for the ID sensitivity of this pathogen. Continue supportive care. MMODL / JUNEN: [id number] / MTDD
[2018-08-26 16:57] LABS: Glucose,Whole Blood 159 mg/dL (75-99)
[2018-08-26] MEDS: DONEPEZIL 10 MG TAB PO SCH (20:37)
[2018-08-26 20:45] LABS: Glucose,Whole Blood 131 mg/dL (75-99)
[2018-08-26] MEDS ORDERED: LEVOFLOXACIN 500 MG TAB PO SCH (23:00)
[2018-08-27] MEDS ORDERED: TIGECYCLINE 100 MG in SODIUM CHLORIDE 0.9% 100 ML IVPB ONE (02:00)
[2018-08-27 07:18] LABS: Glucose,Whole Blood 102 mg/dL (75-99)
[2018-08-27] MEDS: INSULIN ASPART (NovoLOG) 100 UNIT/ML VIAL SQ SCH ×4 (07:20→21:00)
--- NOTE | 2018-08-27 07:23 | P.PN ---
Subjective Progress Note Date: 08/27/18 The patient has a history of a hypotonic ngb. He recently failed a voiding trial He is in the hospital with a uti He is still confused FOr now I would leave the cath in place Depending on his mentation as to whether I will do a cmg cysto in the future as an outpatient Objective - Vital Signs Vital signs: Vital Signs Temp 98.6 F 08/27/18 06:00 Pulse 61 08/27/18 06:00 Resp 20 08/27/18 06:00 BP 140/65 08/27/18 06:00 Pulse Ox 95 08/27/18 06:00 Intake & Output 08/26/18 08/27/18 08/27/18 18:59 06:59 18:59 Output Total 1100 1400 Balance -1100 -1400 Output: Urine 1100 1400 Other: Voiding Method Indwelling Catheter Indwelling Catheter # Bowel Movements 1 1 - Labs CBC & Chem 7: 08/26/18 07:43 08/26/18 07:43 Labs: Abnormal Lab Results - Last 24 Hours (Table) 08/26/18 08/26/18 08/26/18 Range/Units 07:12 07:43 07:43 WBC 17.2 H (3.8-10.6) k/uL RBC 3.02 L (4.30-5.90) m/uL Hgb 8.9 L (13.0-17.5) gm/dL Hct 27.9 L (39.0-53.0) % Sodium 134 L (137-145) mmol/L Carbon Dioxide 20 L (22-30) mmol/L BUN 37 H (9-20) mg/dL Creatinine 1.67 H (0.66-1.25) mg/dL Glucose 161 H (74-99) mg/dL POC Glucose (mg/dL) 185 H (75-99) mg/dL Calcium 7.7 L (8.4-10.2) mg/dL 08/26/18 08/26/18 08/26/18 Range/Units 12:23 16:55 20:44 WBC (3.8-10.6) k/uL RBC (4.30-5.90) m/uL Hgb (13.0-17.5) gm/dL Hct (39.0-53.0) % Sodium (137-145) mmol/L Carbon Dioxide (22-30) mmol/L BUN (9-20) mg/dL Creatinine (0.66-1.25) mg/dL Glucose (74-99) mg/dL POC Glucose (mg/dL) 165 H 159 H 131 H (75-99) mg/dL Calcium (8.4-10.2) mg/dL Microbiology - Last 24 Hours (Table) 08/24/18 20:45 Blood Culture Gram Stain - Preliminary Blood Blood Culture - Preliminary Enterobacter cloacae 08/24/18 23:00 Urine Culture - Preliminary Urine,Catheterized Gram Neg Bacilli
[2018-08-27] MEDS: DULoxetine HCL 30 MG CAPSULE.DR PO SCH (07:31)
[2018-08-27] MEDS: HEPARIN SODIUM,PORCINE 5,000 UNIT/ML 1 ML VIAL SQ SCH ×2 (07:31→20:53)
[2018-08-27] MEDS: FINASTERIDE 5 MG TAB PO SCH (07:31)
[2018-08-27] MEDS: LINAGLIPTIN 5 MG TABLET PO SCH (07:31)
[2018-08-27] MEDS: FAMOTIDINE 20 MG TAB PO SCH (07:31)
[2018-08-27] MEDS: TAMSULOSIN 0.4 MG CAP.ER.24H PO SCH (07:31)
[2018-08-27] MEDS ORDERED: LEVOFLOXACIN 250 MG TAB PO SCH (09:00)
[2018-08-27] MEDS: ACETAMINOPHEN TAB 325 MG TAB PO PRN (11:21)
[2018-08-27 11:27] LABS: HCT 28.9 % (39.0-53.0); HGB 9.3 gm/dL (13.0-17.5); MCH 29.5 pg (25.0-35.0); MCHC 32.1 g/dL (31.0-37.0); Mean Platelet Volume 8.3; Platelet Count 262 k/uL (150-450); RBC 3.15 m/uL (4.30-5.90); RDW 14.1 % (11.5-15.5); WBC 11.1 k/uL (3.8-10.6)
[2018-08-27 11:51] LABS: Albumin 2.5 g/dL (3.5-5.0); Calcium 7.9 mg/dL (8.4-10.2); Potassium 4.2 mmol/L (3.5-5.1); Total Bilirubin 0.2 mg/dL (0.2-1.3); Total Protein 5.8 g/dL (6.3-8.2)
[2018-08-27 11:56] LABS: Glucose,Whole Blood 85 mg/dL (75-99)
[2018-08-27] MEDS ORDERED: FUROSEMIDE 10 MG/ML 2 ML VIAL IV ONE (13:00)
[2018-08-27] MEDS: SODIUM CHLORIDE 0.9% 1,000 ML IV SCH ×2 (13:33→22:09)
[2018-08-27] MEDS: TIGECYCLINE 50 MG in SODIUM CHLORIDE 0.9% 50 ML IVPB SCH (14:13)
--- NOTE | 2018-08-27 16:42 | P.PN ---
Subjective Principal diagnosis: UTI with sepsis Patient's culture is now showing Enterobacter cloacae. He still is somewhat confused. Appreciate urology and infectious disease input. Catheter will stay at this time given his multiple comorbidities for Valdivia. Objective - Vital Signs Vital signs: Vital Signs Temp 98.2 F 08/27/18 14:46 Pulse 80 08/27/18 14:46 Resp 16 08/27/18 14:46 BP 114/64 08/27/18 14:46 Pulse Ox 96 08/27/18 14:46 Intake & Output 08/26/18 08/27/18 08/27/18 18:59 06:59 18:59 Output Total 1100 1400 1500 Balance -1100 -1400 -1500 Output: Urine 1100 1400 1500 Other: Voiding Method Indwelling Catheter Indwelling Catheter Indwelling Catheter # Bowel Movements 1 1 - Constitutional General appearance: Present: no acute distress - Neck Neck: Present: lymphadenopathy - Respiratory Respiratory: bilateral: CTA - Cardiovascular Rhythm: regular Heart sounds: normal: S1, S2 Abnormal Heart Sounds: Absent: S3 Gallop - Gastrointestinal General gastrointestinal: Present: soft. Absent: tenderness - Neurologic Neurologic: Present: CNII-XII intact - Labs CBC & Chem 7: 08/27/18 10:19 08/27/18 10:19 Labs: Abnormal Lab Results - Last 24 Hours (Table) 08/26/18 08/26/18 08/27/18 Range/Units 16:55 20:44 07:15 WBC (3.8-10.6) k/uL RBC (4.30-5.90) m/uL Hgb (13.0-17.5) gm/dL Hct (39.0-53.0) % Sodium (137-145) mmol/L Chloride (98-107) mmol/L Carbon Dioxide (22-30) mmol/L BUN (9-20) mg/dL Creatinine (0.66-1.25) mg/dL POC Glucose (mg/dL) 159 H 131 H 102 H (75-99) mg/dL Calcium (8.4-10.2) mg/dL ALT (21-72) U/L Total Protein (6.3-8.2) g/dL Albumin (3.5-5.0) g/dL 08/27/18 08/27/18 Range/Units 10: 10:19 WBC 11.1 H (3.8-10.6) k/uL RBC 3.15 L (4.30-5.90) m/uL Hgb 9.3 L (13.0-17.5) gm/dL Hct 28.9 L (39.0-53.0) % Sodium 136 L (137-145) mmol/L Chloride 110 H (98-107) mmol/L Carbon Dioxide 20 L (22-30) mmol/L BUN 35 H (9-20) mg/dL Creatinine 1.54 H (0.66-1.25) mg/dL POC Glucose (mg/dL) (75-99) mg/dL Calcium 7.9 L (8.4-10.2) mg/dL ALT 13 L (21-72) U/L Total Protein 5.8 L (6.3-8.2) g/dL Albumin 2.5 L (3.5-5.0) g/dL Microbiology - Last 24 Hours (Table) 08/24/18 20:45 Blood Culture Gram Stain - Preliminary Blood Blood Culture - Preliminary Enterobacter cloacae Assessment and Plan (1) Altered mental status Current Visit: Yes Status: Acute Code(s): R41.82 - ALTERED MENTAL STATUS, UNSPECIFIED SNOMED Code(s): 321703298 (2) Bacteremia due to Gram-negative bacteria Current Visit: Yes Status: Acute Code(s): R78.81 - BACTEREMIA SNOMED Code(s): 550052603992 (3) Dementia Current Visit: Yes Status: Acute Code(s): F03.90 - UNSPECIFIED DEMENTIA WITHOUT BEHAVIORAL DISTURBANCE SNOMED Code(s): 44275379 (4) Sepsis Current Visit: Yes Status: Acute Code(s): A41.9 - SEPSIS, UNSPECIFIED ORGANISM SNOMED Code(s): 15586914 (5) UTI (urinary tract infection) Current Visit: Yes Status: Acute Code(s): N39.0 - URINARY TRACT INFECTION, SITE NOT SPECIFIED SNOMED Code(s): 75911057 (6) Retention of urine Current Visit: No Status: Acute Code(s): R33.9 - RETENTION OF URINE, UNSPECIFIED SNOMED Code(s): 214208731 Plan: We will check CBC and CMP in a.m. If the patient is defervesced and has no elevation of white blood cell count, we will consider. Transfer back to ECF in the a.m. The patient still seems somewhat confused so I worry about his ability to cognitively live independently.
[2018-08-27 17:11] LABS: Glucose,Whole Blood 119 mg/dL (75-99)
--- NOTE | 2018-08-27 17:59 | PN ---
PROGRESS NOTE DATE OF SERVICE: 08/27/2018 REASON FOR FOLLOWUP: CRE bacteremia and UTI INTERVAL HISTORY: This patient's clinical course has been complicated by development of positive blood culture with Enterobacter cloacae that is CRE. Patient this morning has been afebrile. Denies having any chest pain or shortness of breath or cough. No nausea or vomiting. No abdominal pain. No diarrhea. REVIEW OF SYSTEMS: Positive points have been mentioned in HPI. Rest of systems negative. Past medical history, surgical history reviewed. No change in medication. PHYSICAL EXAMINATION: Blood pressure 114/64 with a pulse of 80, temperature 98.2. He is 96% on room air. General description is an elderly male lying in bed in no distress. RESPIRATORY SYSTEM: Unlabored breathing. Clear to auscultation anteriorly. HEART: S1, S2. Regular rate and rhythm. ABDOMEN: Soft. No tenderness. EXTREMITIES: No edema of the feet. LABS: Hemoglobin is 9.3, white count 11.1. BUN of 35, creatinine 1.54. DIAGNOSTIC IMPRESSION AND PLAN: Patient with carbapnem-resistant enterobacter bacteremia. Source is likely urinary in this patient who did have a borderline kidney function; high risk of nephrotoxicity from aminoglycoside use. Patient was started on Tygacil with a plan to get a mid line once his blood culture is negative to finish a 2-week course of therapy. Plan of care was discussed in detail with the pharmacist. Continue supportive care. RADHA / ALTAGRACIA: [id number] / MTDD
[2018-08-27] MEDS: LEVOFLOXACIN 250 MG TAB PO SCH (20:53)
[2018-08-27] MEDS: DONEPEZIL 10 MG TAB PO SCH (20:53)
[2018-08-27 20:59] LABS: Glucose,Whole Blood 106 mg/dL (75-99)
[2018-08-28] MEDS: TIGECYCLINE 50 MG in SODIUM CHLORIDE 0.9% 50 ML IVPB SCH ×2 (02:02→14:05)
[2018-08-28 07:23] LABS: Glucose,Whole Blood 82 mg/dL (75-99)
[2018-08-28] MEDS: INSULIN ASPART (NovoLOG) 100 UNIT/ML VIAL SQ SCH ×4 (07:47→21:30)
[2018-08-28] MEDS: FINASTERIDE 5 MG TAB PO SCH (07:50)
[2018-08-28] MEDS: TAMSULOSIN 0.4 MG CAP.ER.24H PO SCH (07:50)
[2018-08-28] MEDS: FAMOTIDINE 20 MG TAB PO SCH (07:51)
[2018-08-28] MEDS: LINAGLIPTIN 5 MG TABLET PO SCH (07:51)
[2018-08-28] MEDS: DULoxetine HCL 30 MG CAPSULE.DR PO SCH (07:51)
[2018-08-28] MEDS: HEPARIN SODIUM,PORCINE 5,000 UNIT/ML 1 ML VIAL SQ SCH ×2 (07:51→21:33)
--- NOTE | 2018-08-28 08:21 | P.PN ---
Subjective Principal diagnosis: UTI with sepsis Patient's culture is now showing Enterobacter cloacae. He still is somewhat confused. Appreciate urology and infectious disease input. Catheter will stay at this time given his multiple comorbidities for Valdivia. The patient is currently on Tygacil and will anticipate discharge in next day or so. Objective - Vital Signs Vital signs: Vital Signs Temp 98.2 F 08/28/18 05:25 Pulse 85 08/28/18 05:25 Resp 24 08/28/18 05:25 BP 137/69 08/28/18 05:25 Pulse Ox 95 08/28/18 05:25 Intake & Output 08/27/18 08/28/18 08/28/18 18:59 06:59 18:59 Output Total 1500 2700 Balance -1500 -2700 Output: Urine 1500 2700 Other: Voiding Method Indwelling Catheter Indwelling Catheter Indwelling Catheter # Bowel Movements 1 - Constitutional General appearance: Present: average body habitus - EENT Eyes: Absent: abnormal pupil - Respiratory Respiratory: bilateral: CTA - Cardiovascular Rhythm: regular Heart sounds: normal: S1, S2 Abnormal Heart Sounds: Absent: S3 Gallop - Gastrointestinal General gastrointestinal: Present: soft. Absent: tenderness - Psychiatric Psychiatric Comment(s): The patient seems quite dour today. Psychiatric: Absent: A&O x's 3 - Labs CBC & Chem 7: 08/27/18 10:19 08/27/18 10:19 Labs: Abnormal Lab Results - Last 24 Hours (Table) 08/27/18 08/27/18 08/27/18 Range/Units 10:19 10:19 17:10 WBC 11.1 H (3.8-10.6) k/uL RBC 3.15 L (4.30-5.90) m/uL Hgb 9.3 L (13.0-17.5) gm/dL Hct 28.9 L (39.0-53.0) % Sodium 136 L (137-145) mmol/L Chloride 110 H (98-107) mmol/L Carbon Dioxide 20 L (22-30) mmol/L BUN 35 H (9-20) mg/dL Creatinine 1.54 H (0.66-1.25) mg/dL POC Glucose (mg/dL) 119 H (75-99) mg/dL Calcium 7.9 L (8.4-10.2) mg/dL ALT 13 L (21-72) U/L Total Protein 5.8 L (6.3-8.2) g/dL Albumin 2.5 L (3.5-5.0) g/dL 08/27/18 Range/Units 20:58 WBC (3.8-10.6) k/uL RBC (4.30-5.90) m/uL Hgb (13.0-17.5) gm/dL Hct (39.0-53.0) % Sodium (137-145) mmol/L Chloride (98-107) mmol/L Carbon Dioxide (22-30) mmol/L BUN (9-20) mg/dL Creatinine (0.66-1.25) mg/dL POC Glucose (mg/dL) 106 H (75-99) mg/dL Calcium (8.4-10.2) mg/dL ALT (21-72) U/L Total Protein (6.3-8.2) g/dL Albumin (3.5-5.0) g/dL Microbiology - Last 24 Hours (Table) 08/24/18 20:45 Blood Culture Gram Stain - Final Blood Blood Culture - Preliminary Enterobacter cloacae Assessment and Plan (1) Altered mental status Current Visit: Yes Status: Acute Code(s): R41.82 - ALTERED MENTAL STATUS, U NSPECIFIED SNOMED Code(s): 896824964 (2) Bacteremia due to Gram-negative bacteria Current Visit: Yes Status: Acute Code(s): R78.81 - BACTEREMIA SNOMED Code(s): 310202423897 (3) Dementia Current Visit: Yes Status: Acute Code(s): F03.90 - UNSPECIFIED DEMENTIA WITHOUT BEHAVIORAL DISTURBANCE SNOMED Code(s): 17503216 (4) Sepsis Current Visit: Yes Status: Acute Code(s): A41.9 - SEPSIS, UNSPECIFIED ORGANISM SNOMED Code(s): 70575753 (5) UTI (urinary tract infection) Current Visit: Yes Status: Acute Code(s): N39.0 - URINARY TRACT INFECTION, SITE NOT SPECIFIED SNOMED Code(s): 02036278 (6) Retention of urine Current Visit: No Status: Acute Code(s): R33.9 - RETENTION OF URINE, UNSPEC IFIED SNOMED Code(s): 324427267 Plan: We'll continue to give current antibiotic treatment. Anticipate discharge in next 24 hours to complete 2 week treatment of antibiotic therapy.
[2018-08-28 10:10] LABS: HCT 29.1 % (39.0-53.0); HGB 9.5 gm/dL (13.0-17.5); MCH 30.2 pg (25.0-35.0); MCHC 32.8 g/dL (31.0-37.0); MCV 92.1 fL (80.0-100.0); Mean Platelet Volume 6.9; Platelet Count 316 k/uL (150-450); RBC 3.16 m/uL (4.30-5.90); RDW 14.2 % (11.5-15.5); WBC 11.7 k/uL (3.8-10.6)
[2018-08-28 10:33] LABS: Albumin 2.6 g/dL (3.5-5.0); Calcium 8.2 mg/dL (8.4-10.2); Total Bilirubin 0.3 mg/dL (0.2-1.3); Total Protein 6.2 g/dL (6.3-8.2)
[2018-08-28 11:56] LABS: Glucose,Whole Blood 78 mg/dL (75-99)
--- NOTE | 2018-08-28 12:41 | PN ---
PROGRESS NOTE DATE OF SERVICE: 08/28/2018 REASON FOR FOLLOWUP: CRE bacteremia secondary to urinary source. INTERVAL HISTORY: The patient is currently afebrile as of this morning. The patient seems to be slightly agitated. With no nausea or vomiting. No abdominal pain or any diarrhea has been reported by the nursing staff. PHYSICAL EXAMINATION: On examination, blood pressure 137/69 with a pulse of 85, temperature 98.2. He is 95% on room air. General description is an elderly male lying in bed in no distress. RESPIRATORY SYSTEM: Unlabored breathing, clear to auscultation anteriorly. HEART: S1, S2. Regular rate and rhythm. ABDOMEN: Soft, no tenderness. LABS: Blood culture repeat is currently pending. DIAGNOSTIC IMPRESSION AND PLAN: Patient with CRE bacteremia, source is urinary. The patient is currently covered with Tygacil and oral Levaquin. Once the blood culture negative, hopefully, by tomorrow patient to get Midline and continue with IV Tygacil for a total of 2 weeks from negative blood culture to finish course of therapy. Overall prognosis remains to be guarded. Continue supportive care. MMODL / IJN: [id number] / JEREL
--- NOTE | 2018-08-28 13:52 | CDI ---
Documentation Clarification Form Date: 08/28/2018 1:36:01 PM From: Gabriella Macdonald RN, CCDS Admit Date: 08/25/2018 12:59:00 AM Patient Name: Chad Townsend Visit Number: [id number] ATTENTION: The Clinical Documentation Specialists (CDI) and [facility] Coding Staff appreciate your assistance in clarifying documentation. Please respond to the clarification below the line at the bottom and electronically sign. The CDI & [facility] Coding staff will review the response and follow-up if needed. Please note: Queries are made part of the Legal Health Record. If you have any questions, please contact the author of this message via ITS. Dr. Selvin Sher A diagnosis of anemia lacks specificity to accurately reflect your patients severity of condition and clarification is needed. History/Risk Factors: anemia, gastric ulcer, BPH, dementia Clinical indicators: Hemoglobin: 9.4/8.9/9.3/9.5 Hematocrit: 28.7/27.9/28.9/29.1 Treatment: Lab monitoring In order to capture the severity of condition, please clarify the type of anemia and etiology if known: Acute on chronic blood loss anemia Chronic blood loss anemia Iron deficiency anemia Drug induced anemia Nutritional anemia Anemia of chronic kidney disease Anemia of other chronic disease Unable to determine Other, please specify (Last Revision: December 2016) anemia of other chronic disease is the diagnosis that should be used MTDD
--- NOTE | 2018-08-28 13:53 | CDI ---
Date: 08/28/2018 1:43:19 PM From: Gabriella Macdonald RN, CCDS Admit Date: 08/25/2018 12:59:00 AM Patient Name: Chad Townsend Visit Number: [id number] ATTENTION: The Clinical Documentation Specialists (CDI) and [facility] Coding Staff appreciate your assistance in clarifying documentation. Please respond to the clarification below the line at the bottom and electronically sign. The CDI & [facility] Coding staff will review the response and follow-up if needed. Please note: Queries are made part of the Legal Health Record. If you have any questions, please contact the author of this message via ITS. Dr. Selvin Sher History/Risk Factors: H&P: "possible sepsis and possible urinary tract infection patient has a Valdivia catheter which was removed recently for voiding trail and patient is found to have urinary retention found to have fevers with significantly abnormal urine and the patient's a Valdivia cath was placed back and the patient does have prostate hypertrophy urology was consulted patient does have bilateral hydronephrosis which appears to be secondary to a prostate problem. Per documentation in the this patient was admitted with an indwelling Valdivia catheter/a suprapubic catheter/ urostomy.' Clinical Indicators: Urinalysis: +2 protein, TRACE GLUCOSE, MODERATE BLOOD, LARGE LEUKOCYTE ESTERASE, 20 RBC, >182 WBC, many WBC clumps, 45 hyaline casts Urine culture: + Enterobacter cloacae Lab results: WBC 24.2/17.2/11.1/11.7, Hgb 9.4/8.9/9.5, neutrophils 21.1 Treatment: IV Ceftriaxone 1 gm IV Levaquin 500 mg IVPB q 24 hrs IV Meropenem 1 gm IVPB Q 12 hrs 1 L IVF Bolus In your professional opinion, can you please clarify the etiology of the UTI, if known? UTI related to Valdivia catheter UTI not related to catheter/urostomy Other condition, please specify Unable to determine If an infective organism is present, please specify cause and effect relationship if applicable. (Last Revision: June 2017) UTI is related to Valdivia catheter and urinary retention [facility]
[2018-08-28 17:29] LABS: Glucose,Whole Blood 67 mg/dL (75-99)
[2018-08-28 17:29] LABS: Glucose,Whole Blood 91 mg/dL (75-99)
[2018-08-28 21:03] LABS: Glucose,Whole Blood 128 mg/dL (75-99)
[2018-08-28] MEDS: DONEPEZIL 10 MG TAB PO SCH (21:33)
[2018-08-28] MEDS: LEVOFLOXACIN 250 MG TAB PO SCH (21:33)
[2018-08-28] MEDS: ACETAMINOPHEN TAB 325 MG TAB PO PRN (21:34)
[2018-08-28] MEDS: SODIUM CHLORIDE 0.9% 1,000 ML IV SCH (21:38)
[2018-08-29] MEDS: TIGECYCLINE 50 MG in SODIUM CHLORIDE 0.9% 50 ML IVPB SCH ×2 (02:45→14:38)
[2018-08-29] MEDS: INSULIN ASPART (NovoLOG) 100 UNIT/ML VIAL SQ SCH ×4 (07:03→21:54)
[2018-08-29 07:20] LABS: Glucose,Whole Blood 67 mg/dL (75-99)
[2018-08-29 07:21] LABS: Glucose,Whole Blood 95 mg/dL (75-99)
--- NOTE | 2018-08-29 08:08 | P.DS ---
Providers Date of admission: 08/25/18 00:59 Attending physician: Selvin Sher Consults: 08/25/18 07:05 Consult Physician Routine Consulting Provider: Fransisco Ryan Consult Reason/Comments: hydronephrosis Do you want consulting provider notified?: Yes 08/25/18 16:22 Consult Physician Routine Consulting Provider: Marsha Ricks Consult Reason/Comments: UTI CRE Do you want consulting provider notified?: Yes Primary care physician: Slevin Sher - Discharge Diagnosis(es) (1) Altered mental status Current Visit: Yes Status: Acute (2) Bacteremia due to Gram-negative bacteria Current Visit: Yes Status: Acute (3) Dementia Current Visit: Yes Status: Acute (4) Sepsis Current Visit: Yes Status: Acute (5) UTI (urinary tract infection) Current Visit: Yes Status: Acute (6) Retention of urine Current Visit: No Status: Acute Hospital Course: This is a discharge summary an 83-year-old white male essentially admitted for UTI with sepsis element. The patient because of his urinary retention and Valdivia catheter is susceptible to this. He will now after infectious disease consultation and urology consultation have appropriate treatment with Tygacil for 2 weeks. Patient is discharged in guarded condition secondary to his multiple comorbidities but will follow-up with me in one week. Patient Condition at Discharge: Stable Plan - Discharge Summary Discharge Rx Participant: No New Discharge Prescriptions: Continue sitaGLIPtin PHOSPHATE [Januvia] 50 mg PO DAILY glipiZIDE XL [Glucotrol XL] 5 mg PO DAILY Lisinopril [Prinivil] 5 mg PO DAILY Finasteride [Proscar] 5 mg PO DAILY Ferrous Sulfate [Iron (65 MG Elemental)] 325 mg PO BID-W/MEALS Famotidine [Pepcid] 20 mg PO DAILY Donepezil [Aricept] 10 mg PO HS DULoxetine HCL [Cymbalta] 30 mg PO DAILY Tamsulosin HCl [Flomax] 0.4 mg PO DAILY Discharge Medication List DULoxetine HCL [Cymbalta] 30 mg PO DAILY 08/24/18 [History] Donepezil [Aricept] 10 mg PO HS 08/24/18 [History] Famotidine [Pepcid] 20 mg PO DAILY 08/24/18 [History] Ferrous Sulfate [Iron (65 MG Elemental)] 325 mg PO BID-W/MEALS 08/24/18 [History] Finasteride [Proscar] 5 mg PO DAILY 08/24/18 [History] Lisinopril [Prinivil] 5 mg PO DAILY 08/24/18 [History] Tamsulosin HCl [Flomax] 0.4 mg PO DAILY 08/24/18 [History] glipiZIDE XL [Glucotrol XL] 5 mg PO DAILY 08/24/18 [History] sitaGLIPtin PHOSPHATE [Januvia] 50 mg PO DAILY 08/24/18 [History] Follow up Appointment(s)/Referral(s): Selvin Sher MD [Primary Care Provider] - 1 Week Discharge Disposition: TRANSFER TO SNF/ECF
[2018-08-29] MEDS: LINAGLIPTIN 5 MG TABLET PO SCH (08:43)
[2018-08-29] MEDS: TAMSULOSIN 0.4 MG CAP.ER.24H PO SCH (08:43)
[2018-08-29] MEDS: FINASTERIDE 5 MG TAB PO SCH (08:43)
[2018-08-29] MEDS: DULoxetine HCL 30 MG CAPSULE.DR PO SCH (08:43)
[2018-08-29] MEDS: FAMOTIDINE 20 MG TAB PO SCH (08:44)
[2018-08-29] MEDS: HEPARIN SODIUM,PORCINE 5,000 UNIT/ML 1 ML VIAL SQ SCH ×2 (08:46→20:15)
[2018-08-29] MEDS: ACETAMINOPHEN TAB 325 MG TAB PO PRN (08:48)
[2018-08-29 11:57] LABS: Glucose,Whole Blood 112 mg/dL (75-99)
--- NOTE | 2018-08-29 11:58 | PN ---
PROGRESS NOTE DATE OF SERVICE: 08/29/2018. REASON FOR FOLLOWUP: CRE bacteremia secondary to urinary source. INTERVAL HISTORY: The patient is currently afebrile. He is more awake, alert. He is breathing comfortably. No chest pain or any cough. No abdominal pain or any diarrhea. Currently waiting for a Midline placement and discharge antibiotic arrangement. PHYSICAL EXAMINATION: On examination, blood pressure 143/72 with a pulse of 77, temperature 98.1. He is 98% on room air. General description is an elderly male lying in bed in no distress. RESPIRATORY SYSTEM: Unlabored breathing, clear to auscultation anteriorly. HEART: S1, S2. Regular rate and rhythm. ABDOMEN: Soft, no tenderness. LABS: Blood cultures repeat on 08/27 has been negative so far. DIAGNOSTIC IMPRESSION AND PLAN: Patient with CRE bacteremia, source is urinary. Patient at this time responding to Tygacil, will be continued for another 12 days to finish a 2-week course of therapy. Prescription has been provided for the patient. Continue with supportive care. MMODL / IJN: [id number] /
[2018-08-29 16:57] LABS: Glucose,Whole Blood 184 mg/dL (75-99)
[2018-08-29] MEDS: LEVOFLOXACIN 250 MG TAB PO SCH (20:15)
[2018-08-29] MEDS: DONEPEZIL 10 MG TAB PO SCH (20:15)
[2018-08-29] MEDS: SODIUM CHLORIDE 0.9% 1,000 ML IV SCH (21:47)
[2018-08-29 21:52] LABS: Glucose,Whole Blood 125 mg/dL (75-99)
[2018-08-30] MEDS: TIGECYCLINE 50 MG in SODIUM CHLORIDE 0.9% 50 ML IVPB SCH ×2 (02:00→14:27)
[2018-08-30 06:44] LABS: Glucose,Whole Blood 100 mg/dL (75-99)
[2018-08-30 07:46] VITALS: BP 138/75; PULSE 77; TEMP 97.3
[2018-08-30] MEDS: HEPARIN SODIUM,PORCINE 5,000 UNIT/ML 1 ML VIAL SQ SCH (08:44)
[2018-08-30] MEDS: FINASTERIDE 5 MG TAB PO SCH (08:45)
[2018-08-30] MEDS: DULoxetine HCL 30 MG CAPSULE.DR PO SCH (08:45)
[2018-08-30] MEDS: TAMSULOSIN 0.4 MG CAP.ER.24H PO SCH (08:45)
[2018-08-30] MEDS: INSULIN ASPART (NovoLOG) 100 UNIT/ML VIAL SQ SCH ×2 (08:45→13:18)
[2018-08-30] MEDS: FAMOTIDINE 20 MG TAB PO SCH (08:45)
[2018-08-30] MEDS: LINAGLIPTIN 5 MG TABLET PO SCH (08:45)
[2018-08-30] MEDS: ACETAMINOPHEN TAB 325 MG TAB PO PRN (08:49)
[2018-08-30 08:56] VITALS: RESP 18
[2018-08-30 11:53] LABS: Glucose,Whole Blood 232 mg/dL (75-99)
--- NOTE | 2018-08-30 12:50 | PN ---
PROGRESS NOTE DATE OF SERVICE: 08/30/2018 REASON FOR FOLLOWUP: CRE Enterobacter bacteremia, currently on Tygacil. INTERVAL HISTORY: The patient is currently afebrile. Patient is waiting for the authorization for the patient to be transferred back to intermediate. The patient currently denies having any chest pain or shortness of breath no abdominal pain or any diarrhea. PHYSICAL EXAMINATION: Blood pressure is 130/77, temperature 97.3, he is 96% on room air. General description is an elderly male lying in bed in no distress. RESPIRATORY SYSTEM: Unlabored breathing. LUNGS: Clear to auscultation anteriorly. HEART S1, S2. Regular rate and rhythm. ABDOMEN: Soft, no tenderness. LABS: No new labs have been obtained today. Blood cultures repeat 08/27 has been negative. DIAGNOSTIC IMPRESSION AND PLAN: Patient with CRE Enterobacter bacteremia. The patient is currently covered with Tygacil. Will order Midline to continue Tygacil to finish a -2 week course of therapy from negative blood culture. The RN to alert the pharmacy in case he does not go back to the intermediate today, to make sure he has a dose for tonight and over the weekend. Continue supportive care. MMODL / IJN: [id number] / MTDD
--- NOTE | 2018-09-02 11:28 | CDI ---
Documentation Clarification Form Date: 09/02/18 From: Rosa Devlin Phone: If questions call Naida Rivera @ [phone], Hours-8:30 am & 5 pm Neyda Guerrero Admit Date: 08/25/2018 12:59:00 AM Patient Name: Chad Townsend Visit Number: [id number] Discharge Date: 08/30/2018 4:12:00 PM ATTENTION: The Clinical Documentation Specialists (CDI) and [facility] Coding Staff appreciate your assistance in clarifying documentation. Please respond to the clarification below the line at the bottom and electronically sign. The CDI & [facility] Coding staff will review the response and follow-up if needed. Please note: Queries are made part of the Legal Health Record. If you have any questions, please contact the author of this message via ITS. Dr. Selvin Sher Altered Mental Status was documented in the ED note, consult, PNs 08/26, 08/28 & 08/29. History/Risk Factors: sepsis, UTI, DM, vascular dementia, hyponatremia Labs: Na-131, BUN-54, Cr-2.39, Gluc-240, lactic acid-1.6, WBC-24.2, neutrophils- 1.3 X Ray: none CT: none Treatment: In your professional opinion, please clarify the etiology of the Altered Mental Status, if known. Delirium (specify cause): Dementia (if know, specify Type and if with/without Behavioral Disturbance) Encephalopathy (specify Type and Underlying Medical Illness) Other condition (please specify) Unable to determine altered mental status due to vascular dementia MTDD
== END 2018-08-30 16:12 | DRG 698 ==
LOC: EC 22:02 → 4SSUR 08-25 00:58 → EEVIPCON 08-25 00:58 → OBSVTOIN 08-25 00:59 → 3NMEDONC 08-25 02:15 → 4MS4W 08-25 05:39
PROVIDERS: ADMIT Family Medicine; ATTEND Family Medicine
PROC: 05HB33Z Insertion of Infusion Device into Right Basilic Vein, Percutaneous Approach (ICD-10-PCS; principal; 2018-08-29 15:07)
DX: T83.511A Infection and inflammatory reaction due to indwelling urethral catheter, initial encounter (principal); A41.81 Sepsis due to Enterococcus; N13.6 Pyonephrosis; E87.1 Hypo-osmolality and hyponatremia; N13.8 Other obstructive and reflux uropathy; E11.9 Type 2 diabetes mellitus without complications; D63.8 Anemia in other chronic diseases classified elsewhere; F01.50 Vascular dementia, unspecified severity, without behavioral disturbance, psychotic disturbance, mood disturbance, and anxiety; N40.1 Benign prostatic hyperplasia with lower urinary tract symptoms; R33.8 Other retention of urine; F32.9 Major depressive disorder, single episode, unspecified; I10 Essential (primary) hypertension; Z16.21 Resistance to vancomycin; I25.10 Atherosclerotic heart disease of native coronary artery without angina pectoris; Z79.84 Long term (current) use of oral hypoglycemic drugs; Z79.899 Other long term (current) drug therapy; Z90.49 Acquired absence of other specified parts of digestive tract; Z86.19 Personal history of other infectious and parasitic diseases; Z87.440 Personal history of urinary (tract) infections; Z87.11 Personal history of peptic ulcer disease; Y84.6 Urinary catheterization as the cause of abnormal reaction of the patient, or of later complication, without mention of misadventure at the time of the procedure
CPT/HCPCS: 36410; 36415; 51702; 76770; 76937; 80048; 80053; 81001; 83605; 85025; 85027; 87040; 87077; 87086; 87186; 87324; 93005; 96365; 99285

== ENCOUNTER 2018-11-16 12:24 | Inpatient (IN) | payer MEDICARE ==
[2018-11-16] MEDS ORDERED: SODIUM CHLORIDE 0.9% 500 ML 500 ML IV STA (12:44)
--- NOTE | 2018-11-16 12:49 | ED ---
General Adult HPI - General Stated complaint: Weakness Time Seen by Provider: 11/16/18 12:30 Source: EMS, RN notes reviewed, old records reviewed Mode of arrival: EMS Limitations: altered mental status, physical limitation - History of Present Illness Initial comments: Patient is a pleasant 83-year-old male sent to the emergency department from [facility] for generalized weakness. Onset of symptoms was a past day or 2, worsening today. Patient has difficulty even with eating. Patient is a very poor historian and provides no significant history. Patient is reportedly DO NOT RESUSCITATE and does have paperwork. Patient has had decreased oral intake recently. Patient denies pain or isolated area of weakness. - Related Data Home Medications Medication Instructions Recorded Confirmed DULoxetine HCL [Cymbalta] 90 mg PO HS 08/24/18 11/16/18 Donepezil [Aricept] 10 mg PO HS 08/24/18 11/16/18 Famotidine [Pepcid] 20 mg PO DAILY 08/24/18 11/16/18 Ferrous Sulfate [Iron (65 MG 325 mg PO BID 08/24/18 11/16/18 Elemental)] Lisinopril [Prinivil] 5 mg PO DAILY@1400 08/24/18 11/16/18 sitaGLIPtin PHOSPHATE [Januvia] 50 mg PO DAILY 08/24/18 11/16/18 HYDROcodone/APAP 5-325MG [[place] 1 tab PO Q4HR PRN 11/16/18 11/16/18 5-325] L.acidoph,Paracasei, B.lactis 1 cap PO DAILY 11/16/18 11/16/18 [Probiotic] Multivitamins, Thera [Multivitamin 1 tab PO DAILY 11/16/18 11/16/18 (formulary)] Sennosides [Senna] 8.6 mg PO DAILY 11/16/18 11/16/18 Sertraline [Zoloft] 50 mg PO DAILY 11/16/18 11/16/18 glipiZIDE [Glucotrol XL] 2.5 mg PO DAILY 11/16/18 11/16/18 Allergies Allergy/AdvReac Type Severity Reaction Status Date / Time No Known Allergies Allergy Verified 11/16/18 12:56 Review of Systems ROS Statement: Those systems with pertinent positive or pertinent negative responses have been documented in the HPI. ROS Other: All systems not noted in ROS Statement are negative. Constitutional: Denies: fever Eyes: Denies: eye pain ENT: Denies: ear pain Respiratory: Reports: dyspnea. 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 Date of last positivie culture/infection: 09/16/18 CRE ENTEROBACTER CLOACAE CONF IRMED [facility] BY [facility] MDRO Source:: urine/blood Past Surgical History: Appendectomy Additional Past Surgical History / Comment(s): pt unable to recall "they were so long ago" Past Anesthesia/Blood Transfusion Reactions: No Reported Reaction Past Psychological History: Depression Smoking Status: Never smoker Past Alcohol Use History: None Reported Past Drug Use History: None Reported - Past Family History Mother History Unknown: Yes Father History Unknown: Yes General Exam Limitations: altered mental status, physical limitation General appearance: alert, cachectic Head exam: Present: atraumatic Eye exam: Present: normal appearance, PERRL ENT exam: Present: mucous membranes dry Neck exam: Present: normal inspection Respiratory exam: Present: rhonchi Cardiovascular Exam: Present: tachycardia GI/Abdominal exam: Present: soft. Absent: tenderness Extremities exam: Present: other (Right distal foot with gangrenous portions of several toes) Neurological exam: Present: alert, altered. Absent: motor sensory deficit Expanded Neurological exam: Present: protecting the airway Patient oriented to: Present: person. Absent: place, time Eye Response: (4) open spontaneously Motor Response: (6) obeys commands Verbal Response: (4) confused conversation Psychiatric exam: Present: normal affect, normal mood Skin exam: Present: other (Gangrenous portion of the right toes) Course Vital Signs 11/16/18 11/16/18 11/16/18 12:34 13:00 13:19 Temperature 99.8 F H Pulse Rate 113 H 98 Respiratory 18 30 H 22 Rate Blood Pressure 113/59 125/47 O2 Sat by Pulse 98 Oximetry 11/16/18 13:56 Temperature Pulse Rate 99 Respiratory 22 Rate Blood Pressure 112/51 O2 Sat by Pulse 98 Oximetry EKG Findings - EKG Comments: EKG Findings:: Sinus tachycardia 113. AK 138. QRS 74. QT 328. QTC 449. Normal axis. Normal QRS. No acute ST change. Medical Decision Making - Medical Decision Making Patient reevaluated and unchanged. Patient updated on plan. Case discussed with Dr. Frye, who will admit covering for Dr. Pradhan. - Lab Data Result diagrams: 11/16/18 12:47 11/16/18 12:47 Lab Results 11/16/18 11/16/18 11/16/18 Range/Units 12:47 12:47 12:47 WBC 21.6 H (3.8-10.6) k/uL RBC 3.29 L (4.30-5.90) m/uL Hgb 9.7 L (13.0-17.5) gm/dL Hct 30.6 L (39.0-53.0) % MCV 93.3 (80.0-100.0) fL MCH 29.6 (25.0-35.0) pg MCHC 31.8 (31.0-37.0) g/dL RDW 15.7 H (11.5-15.5) % Plt Count 536 H (150-450) k/uL Neutrophils % 91 % Lymphocytes % 3 % Monocytes % 4 % Eosinophils % 0 % Basophils % 0 % Neutrophils # 19.7 H (1.3-7.7) k/uL Lymphocytes # 0.7 L (1.0-4.8) k/uL Monocytes # 0.8 (0-1.0) k/uL Eosinophils # 0.0 (0-0.7) k/uL Basophils # 0.1 (0-0.2) k/uL PT (9.0-12.0) sec INR (<1.2) APTT (22.0-30.0) sec Sodium 140 (137-145) mmol/L Potassium 5.1 (3.5-5.1) mmol/L Chloride 102 (98-107) mmol/L Carbon Dioxide 25 (22-30) mmol/L Anion Gap 13 mmol/L BUN 69 H (9-20) mg/dL Creatinine 3.39 H (0.66-1.25) mg/dL Est GFR (CKD-EPI)AfAm 18 (>60 ml/min/1.73 sqM) Est GFR (CKD-EPI)NonAf 16 (>60 ml/min/1.73 sqM) Glucose 209 H (74-99) mg/dL Plasma Lactic Acid Chance 1.9 (0.7-2.0) mmol/L Calcium 8.5 (8.4-10.2) mg/dL Magnesium 1.9 (1.6-2.3) mg/dL Total Bilirubin 0.5 (0.2-1.3) mg/dL AST 21 (17-59) U/L ALT 29 (21-72) U/L Alkaline Phosphatase 75 (38-126) U/L Troponin I (0.000-0.034) ng/mL Total Protein 6.6 (6.3-8.2) g/dL Albumin 2.8 L (3.5-5.0) g/dL Urine Color Urine Appearance (Clear) Urine pH (5.0-8.0) Ur Specific [place] (1.001-1.035) Urine Protein (Negative) Urine Glucose (UA) (Negative) Urine Ketones (Negative) Urine Blood (Negative) Urine Nitrite (Negative) Urine Bilirubin (Negative) Urine Urobilinogen (<2.0) mg/dL Ur Leukocyte Esterase (Negative) Urine RBC (0-5) /hpf Urine WBC (0-5) /hpf Urine WBC Clumps (None) /hpf Urine Bacteria (None) /hpf 11/16/18 11/16/18 11/16/18 Range/Units 12:47 12:47 13:08 WBC (3.8-10.6) k/uL RBC (4.30-5.90) m/uL Hgb (13.0-17.5) gm/dL Hct (39.0-53.0) % MCV (80.0-100.0) fL MCH (25.0-35.0) pg MCHC (31.0-37.0) g/dL RDW (11.5-15.5) % Plt Count (150-450) k/uL Neutrophils % % Lymphocytes % % Monocytes % % Eosinophils % % Basophils % % Neutrophils # (1.3-7.7) k/uL Lymphocytes # (1.0-4.8) k/uL Monocytes # (0-1.0) k/uL Eosinophils # (0-0.7) k/uL Basophils # (0-0.2) k/uL PT 11.2 (9.0-12.0) sec INR 1.1 (<1.2) APTT 20.0 L (22.0-30.0) sec Sodium (137-145) mmol/L Potassium (3.5-5.1) mmol/L Chloride (98-107) mmol/L Carbon Dioxide (22-30) mmol/L Anion Gap mmol/L BUN (9-20) mg/dL Creatinine (0.66-1.25) mg/dL Est GFR (CKD-EPI)AfAm (>60 ml/min/1.73 sqM) Est GFR (CKD-EPI)NonAf (>60 ml/min/1.73 sqM) Glucose (74-99) mg/dL Plasma Lactic Acid Chance (0.7-2.0) mmol/L Calcium (8.4-10.2) mg/dL Magnesium (1.6-2.3) mg/dL Total Bilirubin (0.2-1.3) mg/dL AST (17-59) U/L ALT (21-72) U/L Alkaline Phosphatase (38-126) U/L Troponin I 0.046 H* (0.000-0.034) ng/mL Total Protein (6.3-8.2) g/dL Albumin (3.5-5.0) g/dL Urine Color Yellow Urine Appearance Turbid (Clear) Urine pH 6.0 (5.0-8.0) Ur Specific [place] 1.011 (1.001-1.035) Urine Protein 2+ H (Negative) Urine Glucose (UA) Negative (Negative) Urine Ketones Negative (Negative) Urine Blood Moderate H (Negative) Urine Nitrite Negative (Negative) Urine Bilirubin Negative (Negative) Urine Urobilinogen <2.0 (<2.0) mg/dL Ur Leukocyte Esterase Large H (Negative) Urine RBC 173 H (0-5) /hpf Urine WBC >182 H (0-5) /hpf Urine WBC Clumps Many H (None) /hpf Urine Bacteria Many H (None) /hpf - Radiology Data Radiology results: image reviewed (Chest x-ray shows right lower lobe opacity) Critical Care Time Critical Care Time: Yes Total Critical Care Time: 34 Disposition Clinical Impression: Sepsis, UTI (urinary tract infection), Pneumonia Disposition: ADMITTED IP TO THIS HOSP Condition: Serious Is patient prescribed a controlled substance at d/c from ED?: No Referrals: Trenton Pradhan MD [Primary Care Provider] - 1-2 days Decision Time: 14:32
[2018-11-16 13:22] LABS: Basophils # (A) 0.1 k/uL (0-0.2); Basophils % (A) 0 %; Eosinophils % (A) 0 %; HCT 30.6 % (39.0-53.0); HGB 9.7 gm/dL (13.0-17.5); Lymphocytes # (A) 0.7 k/uL (1.0-4.8); Lymphocytes % (A) 3 %; MCH 29.6 pg (25.0-35.0); MCHC 31.8 g/dL (31.0-37.0); MCV 93.3 fL (80.0-100.0); Monocytes # (A) 0.8 k/uL (0-1.0); Monocytes % (A) 4 %; Neutrophils # (A) 19.7 k/uL (1.3-7.7); Neutrophils % (A) 91 %; Platelet Count 536 k/uL (150-450); RBC 3.29 m/uL (4.30-5.90); RDW 15.7 % (11.5-15.5); WBC 21.6 k/uL (3.8-10.6)
[2018-11-16 13:30] LABS: Albumin 2.8 g/dL (3.5-5.0); Calcium 8.5 mg/dL (8.4-10.2); Magnesium 1.9 mg/dL (1.6-2.3); Potassium 5.1 mmol/L (3.5-5.1); Total Bilirubin 0.5 mg/dL (0.2-1.3); Total Protein 6.6 g/dL (6.3-8.2)
[2018-11-16 13:35] LABS: Appearance,Urine Turbid (Clear); Bacteria,Urine Many /hpf; Bilirubin,Urine Negative (Negative); Blood,Urine Moderate (Negative); Color,Urine Yellow; Glucose,Urine (UA) Negative (Negative); Ketones,Urine Negative (Negative); Leukocyte Esterase,Urine Large (Negative); Nitrite,Urine Negative (Negative); Protein,Urine 2+ (Negative); RBC,Urine 173 /hpf (0-5); Urobilinogen,Urine <2.0 mg/dL (<2.0); WBC,Urine >182 /hpf (0-5)
[2018-11-16 13:39] LABS: Specific Gravity,Urine 1.011 (1.001-1.035)
[2018-11-16 14:03] LABS: INR 1.1 (<1.2); Prothrombin Time 11.2 sec (9.0-12.0)
[2018-11-16] MEDS ORDERED: SODIUM CHLORIDE 0.9% 1,000 ML IV STA (14:05)
--- NOTE | 2018-11-16 14:32 | XR ---
EXAMINATION TYPE: XR chest 1V DATE OF EXAM: 11/16/2018 COMPARISON: NONE HISTORY: 83-year-old male with weakness and shortness of breath TECHNIQUE: Single frontal view of the chest is obtained. FINDINGS: Volume loss in the right hemithorax with some elevation right hemidiaphragm. Patchy opacity throughou t the right mid and lower lung. Heart normal size. Aorta within normal limits. No sizable effusion. IMPRESSION: Patchy opacity throughout the right mid and lower lung. Correlate for pneumonia. Elevation right fermin diaphragm suggests some corresponding underlying volume loss. Follow-up after treatment to ensure randy arance.
[2018-11-16] MEDS ORDERED: PIPERACILLIN-TAZOBACTAM 3.375 GM in SODIUM CHLORIDE 0.9% 100 ML IVPB STA (14:43)
[2018-11-16] MEDS ORDERED: LEVOFLOXACIN 750MG-D5W PMX 750 MG in DEXTROSE/WATER 1 150ML.BAG IVPB STA (14:43)
[2018-11-16] MEDS ORDERED: PNEUMONIA PROTOCOL UTILIZED 1 EACH MISC PO PRN (14:43)
[2018-11-16] MEDS ORDERED: IPRATROPIUM-ALBUTEROL 3 ML NEB INHALATION PRN (14:43)
[2018-11-16] MEDS: SODIUM CHLORIDE 0.9% 1,000 ML IV SCH ×3 (15:16→22:29)
[2018-11-16] MEDS: IPRATROPIUM-ALBUTEROL 3 ML NEB INHALATION SCH ×2 (15:36→19:17)
[2018-11-16] MEDS ORDERED: HYDROcodone/APAP 5-325MG 1 EACH TAB PO PRN (17:51)
[2018-11-16] MEDS: DULoxetine HCL 30 MG CAPSULE.DR PO SCH (20:06)
[2018-11-16] MEDS: DONEPEZIL 10 MG TAB PO SCH (20:06)
[2018-11-16] MEDS: FERROUS SULFATE 325 MG TAB PO SCH (20:06)
--- NOTE | 2018-11-17 00:42 | P.CONS ---
History of Present Illness - Reason for Consult Consult date: 11/16/18 Fever Requesting physician: Toña Solis - Chief Complaint Generalized weakness x 2 days - History of Present Illness Patient is 83-year-old male with a past medical history significant for right lower extremity ischemia history of for recurrent UTIs and a senior care resident has been sent to [facility] for evaluation of generalized weakness to the point the patient was unable to eat or feed himself on arrival to the ER the patient did have low-grade fever of 99.8 and his white count was elevated 21,000 patient also noticed to have acute renal failure with creatinine of 3.36 the patient did have a positive UA and a Valdivia catheter apparently there was changed in the ER per RN, patient also have a chest x-ray with evidence of right-sided infiltrate concerning for pneumonia patient is currently being treated with Zosyn and Levaquin infection disease was consulted for further recommendations regarding antibiotics Patient himself is not a good historian denies any headache or chest pain shortness of breath no cough no nausea no vomiting pain and no diarrhea Review of Systems Positive points has been mentioned in HPI complete review could not be obtained because of the patient mental status 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 Discovered:: 09/16/18 CRE ENTEROBACTER CLOACAE CONFIRMED [facility] MDRO Source:: urine/blood Past Surgical History: Appendectomy Additional Past Surgical History / Comment(s): pt unable to recall "they were so long ago" Past Anesthesia/Blood Transfusion Reactions: No Reported Reaction Past Psychological History: Depression Smoking Status: Never smoker Past Alcohol Use History: None Reported Past Drug Use History: None Reported - Past Family History Mother History Unknown: Yes Father History Unknown: Yes Medications and Allergies Home Medications Medication Instructions Recorded Confirmed Type DULoxetine HCL [Cymbalta] 90 mg PO HS 08/24/18 11/16/18 History Donepezil [Aricept] 10 mg PO HS 08/24/18 11/16/18 History Famotidine [Pepcid] 20 mg PO DAILY 08/24/18 11/16/18 History Ferrous Sulfate [Iron (65 MG 325 mg PO BID 08/24/18 11/16/18 History Elemental)] Lisinopril [Prinivil] 5 mg PO DAILY@1400 08/24/18 11/16/18 History sitaGLIPtin PHOSPHATE [Januvia] 50 mg PO DAILY 08/24/18 11/16/18 History HYDROcodone/APAP 5-325MG [[place] 1 tab PO Q4HR PRN 11/16/18 11/16/18 History 5-325] L.acidoph,Paracasei, B.lactis 1 cap PO DAILY 11/16/18 11/16/18 History [Probiotic] Multivitamins, Thera [Multivitamin 1 tab PO DAILY 11/16/18 11/16/18 History (formulary)] Sennosides [Senna] 8.6 mg PO DAILY 11/16/18 11/16/18 History Sertraline [Zoloft] 50 mg PO DAILY 11/16/18 11/16/18 History glipiZIDE [Glucotrol XL] 2.5 mg PO DAILY 11/16/18 11/16/18 History Allergies Allergy/AdvReac Type Severity Reaction Status Date / Time No Known Allergies Allergy Verified 11/16/18 12:56 Physical Exam Vitals: Vital Signs Temp Pulse Resp BP Pulse Ox 11/16/18 14:58 98 22 116/49 97 11/16/18 14:35 101 H 22 109/81 95 11/16/18 13:56 99 22 112/51 98 11/16/18 13:19 98 22 125/47 98 11/16/18 13:00 30 H 11/16/18 12:34 99.8 F H 113 H 18 113/59 Intake and Output 11/16/18 11/16/18 11/16/18 06:59 14:59 22:59 Other: Weight 68.039 kg GENERAL DESCRIPTION: An elderly male lying in bed, no distress. No tachypnea or accessory muscle of respiration use. HEENT: Shows Pallor , no scleral icterus. Oral mucous membrane is dry. No pharyngeal erythema or thrush NECK: Trachea central, no thyromegaly. LUNGS: Unlabored breathing. Decreased breath sound at the base. No wheeze or crackle. HEART: S1, S2, regular rate and rhythm. No loud murmur ABDOMEN: Soft, no tenderness , guarding or rigidity, no organomegaly EXTREMITIES: Right foot with ischemic changes but no definite cellulitis SKIN: No rash, no masses palpable. NEUROLOGICAL: The patient is awake, alert, oriented x2, mood and affect normal. Results CBC & Chem 7: 11/16/18 12:47 11/16/18 12:47 Labs: Abnormal Lab Results - Last 24 Hours (Table) 11/16/18 11/16/18 11/16/18 Range/Units 12:47 12:47 12:47 WBC 21.6 H (3.8-10.6) k/uL RBC 3.29 L (4.30-5.90) m/uL Hgb 9.7 L (13.0-17.5) gm/dL Hct 30.6 L (39.0-53.0) % RDW 15.7 H (11.5-15.5) % Plt Count 536 H (150-450) k/uL Neutrophils # 19.7 H (1.3-7.7) k/uL Lymphocytes # 0.7 L (1.0-4.8) k/uL APTT 20.0 L (22.0-30.0) sec BUN 69 H (9-20) mg/dL Creatinine 3.39 H (0.66-1.25) mg/dL Glucose 209 H (74-99) mg/dL Troponin I (0.000-0.034) ng/mL Albumin 2.8 L (3.5-5.0) g/dL Urine Protein (Negative) Urine Blood (Negative) Ur Leukocyte Esterase (Negative) Urine RBC (0-5) /hpf Urine WBC (0-5) /hpf Urine WBC Clumps (None) /hpf Urine Bacteria (None) /hpf 11/16/18 11/16/18 Range/Units 12:47 13:08 WBC (3.8-10.6) k/uL RBC (4.30-5.90) m/uL Hgb (13.0-17.5) gm/dL Hct (39.0-53.0) % RDW (11.5-15.5) % Plt Count (150-450) k/uL Neutrophils # (1.3-7.7) k/uL Lymphocytes # (1.0-4.8) k/uL APTT (22.0-30.0) sec BUN (9-20) mg/dL Creatinine (0.66-1.25) mg/dL Glucose (74-99) mg/dL Troponin I 0.046 H* (0.000-0.034) ng/mL Albumin (3.5-5.0) g/dL Urine Protein 2+ H (Negative) Urine Blood Moderate H (Negative) Ur Leukocyte Esterase Large H (Negative) Urine RBC 173 H (0-5) /hpf Urine WBC >182 H (0-5) /hpf Urine WBC Clumps Many H (None) /hpf Urine Bacteria Many H (None) /hpf Assessment and Plan Assessment: 1-patient admitted to the hospital with generalized weakness which is likely multifactorial in this patient who did have elevated white count and low-grade fever likely secondary to catheter associated urinary tract infection clinical suspicion is low for underlying pneumonia but not entirely excluded as the patient noticed to be breathing comfortably and no congested cough was noticed 2-right foot with ischemic changes or evidence of any cellulitis Plan: 1-patient antibiotic will be switched over to meropenem 1 g every 12 on the basis of last pseudomonas that he grew in his urine at [facility] that was resi stant to Zosyn 2-dry protective dressing to his right foot wound we will follow on clinical condition and culture to further adjust medication if needed Thank you for this consultation will follow this patient along with you Time with Patient: Greater than 30
[2018-11-17] MEDS ORDERED: MORPHINE SULFATE 2 MG/ML SYRINGE IVP ONE (01:22)
[2018-11-17] MEDS ORDERED: MORPHINE SULFATE 2 MG/ML SYRINGE ONE (01:44)
[2018-11-17] MEDS ORDERED: PIPERACILLIN-TAZOBACTAM 3.375 GM in SODIUM CHLORIDE 0.9% 100 ML IVPB SCH ×6 (06:00)
[2018-11-17 07:39] LABS: Glucose,Whole Blood 312 mg/dL (75-99)
[2018-11-17] MEDS: IPRATROPIUM-ALBUTEROL 3 ML NEB INHALATION SCH ×4 (08:00→20:14)
[2018-11-17] MEDS: SODIUM CHLORIDE 0.9% 1,000 ML IV SCH ×3 (08:35→21:09)
[2018-11-17] MEDS: MEROPENEM 500 MG in SODIUM CHLORIDE 0.9% 100 ML IVPB SCH ×2 (08:43→21:08)
[2018-11-17] MEDS ORDERED: MEROPENEM 1 GM in SODIUM CHLORIDE 0.9% 100 ML IVPB SCH (09:00)
[2018-11-17 11:05] VITALS: BMI 21.3
[2018-11-17] MEDS: SENNOSIDES 8.6 MG TAB PO SCH (12:18)
[2018-11-17] MEDS: FAMOTIDINE 20 MG TAB PO SCH (12:18)
[2018-11-17] MEDS: LINAGLIPTIN 5 MG TABLET PO SCH (12:18)
[2018-11-17] MEDS: MULTIVITAMINS, THERA 1 EACH TAB PO SCH (12:18)
[2018-11-17] MEDS: LACTOBACILLUS ACIDOPH & BULGAR 1 EACH PACKET PO SCH (12:18)
[2018-11-17] MEDS: FERROUS SULFATE 325 MG TAB PO SCH ×2 (12:18→19:48)
[2018-11-17] MEDS: SERTRALINE 50 MG TAB PO SCH (12:19)
--- NOTE | 2018-11-17 12:34 | XR ---
EXAMINATION TYPE: XR chest 1V portable DATE OF EXAM: 11/17/2018 COMPARISON: Chest radiograph 11/16/2018 HISTORY: Pneumonia TECHNIQUE: Single frontal view of the chest is obtained. FINDINGS: Apparent elevation of the right hemidiaphragm with overall low lung volumes on the right. Patchy righ t basilar opacity. Left lung is grossly clear. No pneumothorax. Cardiomediastinal silhouette is withi n normal limits. There are right-sided rib fractures 6 posteriorly and mildly displaced of 8 and 9 (s eventh rib fracture is likely however not significantly visualized on this study). IMPRESSION: 1. Stable exam with patchy airspace opacities throughout the right lung. Apparent elevation of the ri ght hemidiaphragm may be on the basis of small pleural effusion and/or atelectasis. 2. Right-sided rib fractures.
--- NOTE | 2018-11-17 14:11 | HP ---
HISTORY AND PHYSICAL I am covering for Dr. Sher. DATE OF SERVICE: 11/16/2018. CHIEF COMPLAINT: Weakness and change in mental status. HISTORY OF PRESENT ILLNESS: This 83-year-old gentleman with a past medical history of multiple medical problems including his diabetes, hypertension, memory impairment, history of CAD, being followed by Dr. Sher in the outpatient setting, also diagnosis CRE recently, the patient was at [facility], subsequently sent to [facility] under Dr. Waterman and currently the patient is sent to the emergency room from the halfway with generalized weakness. The patient is confused. The p.o. intake appears to be poor. The patient is do not resuscitate. The patient unable to give coherent history, most history taken from my discussion with staff and review of the chart. White count is elevated at 21.6 and troponin 0.46. UA showed significant abnormalities including UTI with possible sepsis. PAST MEDICAL HISTORY: History of of CRE, history of diabetes, hypertension, CAD, memory impairment, prostate disorder. MEDICATIONS: Prior to admission include: 1. [place] 5 mg every 4 p.r.n. 2. Iron 320 mg p.o. b.i.d. 3. Zoloft 50 mg p.o. 4. Senna 8.6 p.o. daily. 5. Multivitamins. 6. Prinivil 5 mg p.o. daily. 7. Probiotic 1 capsule p.o. daily. 8. Januvia 50 mg p.o. daily. 9. Glucotrol XL 2.5 mg daily. 10.Pepcid 20 mg p.o. daily. 11.Aricept 10 mg p.o. at bedtime. 12.Cymbalta 90 mg p.o. daily p.o. at bedtime. ALLERGIES: None. FAMILY HISTORY: No history of heart disease or stroke in the family. SOCIAL HISTORY: Per chart, from the chart, no smoking, no alcohol abuse. REVIEW OF SYSTEMS: Could not be taken. PHYSICAL EXAM: Patient is confused. The patient is stuporous. Pulse is 94, blood pressure is 170/60, respirations 20, temperature 98.2, pulse ox 94% on 8 L. HEENT: Conjunctivae normal. Oral mucosa moist. NECK: No jugular venous distention. No lymph node enlargement. CARDIOVASCULAR: S1 and S2 muffled. LUNGS: Bilateral scattered rhonchi and crackles. ABDOMEN: Soft nontender. LEGS: No edema. NERVOUS SYSTEM: Diffuse contractures. LABS: Creatinine 3.9. WBC 21.2, hemoglobin 9.7. ASSESSMENT: 1. Acute urinary tract infection with sepsis present on admission. 2. Change in mental status, metabolic encephalopathy, acute on chronic. 3. Increased WBC. 4. Renal failure possibly acute on chronic with prerenal acute tubular necrosis. 5. Chronic kidney disease stage 3 baseline. 6. Anemia, normocytic anemia of chronic disease. 7. Troponin 0.046 indeterminate. 8. Bilateral pneumonia possibly aspiration, possibly gram-negative with acute hypoxic respiratory failure. 9. History of coronary artery disease. 10.Diabetes mellitus type 2. 11.Hypertension. 12.History of dementia. 13.Prostate disorder. 14.History of gastric ulcer with no perforation. 15.Benign prostatic hypertrophy. 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 17.History of depression. 18.No code, no CPR, no vent. RECOMMENDATIONS AND DISCUSSION: In this 83-year-old gentleman who presented with multiple complex medical issues, we will monitor the patient closely, continue the current management and will initiate conservative line of management. Consult Dr. Ricks for antibiotic recommendations. Otherwise resume the rest of medications. Prognosis extremely guarded because of multiple complex medical issues. The patient also had Pseudomonas growing, which is sensitive to meropenem. Otherwise, prognosis extremely guarded because of multiple complex medical issues. I would also recommend isolation and further recommendations to follow. Prognosis guarded. MMODL / IJN: [id number] /
[2018-11-17] MEDS: MORPHINE SULFATE 2 MG/ML SYRINGE IVP PRN ×3 (14:50→21:08)
[2018-11-17] MEDS ORDERED: LEVOFLOXACIN 750MG-D5W PMX 750 MG in DEXTROSE/WATER 1 150ML.BAG IVPB SCH (16:00)
[2018-11-17] MEDS ORDERED: LEVOFLOXACIN 500MG-D5W PMX 500 MG in DEXTROSE/WATER 1 100ML.BAG IVPB SCH (16:00)
[2018-11-17] MEDS: LISINOPRIL 5 MG TAB PO SCH (17:40)
[2018-11-17] MEDS: DONEPEZIL 10 MG TAB PO SCH (19:48)
[2018-11-17] MEDS: DULoxetine HCL 30 MG CAPSULE.DR PO SCH (19:48)
--- NOTE | 2018-11-17 21:23 | PN ---
PROGRESS NOTE DATE OF SERVICE: 11/17/2018 I am covering for Dr. Sher. HISTORY OF PRESENT ILLNESS: This 83-year-old gentleman with a past history of multiple medical problems, admitted with change in mental status, acute urinary tract infection with sepsis present on admission. The patient also had a CRE recently. The patient is unresponsive and stuporous at this time. The patient apparently was supposed to be in hospice but the family will decide about later per staff. PAST MEDICAL HISTORY: Reviewed. REVIEW OF SYSTEMS: Could not be taken, the patient is stuporous. CURRENT MEDICATIONS: 1. [place] 5 mg q.4 p.r.n. 2. DuoNeb q.i.d. and p.r.n. 3. Aricept 10 mg q.h.s. 4. Cymbalta 90 mg q.h.s. 5. Pepcid 20 mg p.o. 6. Aricept 10 mg p.o. b.i.d. 7. Glucotrol 2.5 mg. 8. Lactinex 1 p.o. daily. 9. Tradjenta 5 mg p.o. daily. 10.Zestril 5 mg. 11.Meropenem 100 mg b.i.d. 12.Multivitamins. 13.Senokot. 14.Zoloft. PHYSICAL EXAMINATION: The patient is stuporous. Pulse 94, blood pressure 108/47, respiration 20, temperature 98.4, pulse ox 98% on 4 L. HEENT: Conjunctivae normal. Oral mucosa moist. NECK: No jugular venous distention. No lymph node enlargement. CARDIOVASCULAR: S1, S2. RESPIRATORY: Diminished breath sounds at the bases. Bilateral scattered rhonchi and crackles. ABDOMEN: Soft, nontender. LEGS: No swelling. NERVOUS SYSTEM: Diffusely weak, contractures. LABS: WBC 21.2, hemoglobin 9.7, glucose 312. ASSESSMENT: 1. Acute urinary tract infection with sepsis present on admission with possibly CRE. 2. Change in mental status, metabolic encephalopathy, acute on chronic. 3. Increased WBC. 4. Renal failure possible acute on chronic with prerenal acute tubular necrosis. 5. Chronic kidney disease, stage 3 baseline. 6. Anemia, normocytic anemia of chronic disease. 7. Troponin 0.046, indeterminate. 8. Bilateral pneumonia, possibly aspiration, acute possibly gram-negative with acute hypoxic respiratory failure present on this admission. 9. History of coronary artery disease. 10.Diabetes mellitus type 2. 11.Hypertension. 12.History of dementia. 13.History of prostate disorder. 14.History of gastric ulcer with no perforation. 15.History of benign prostatic hypertrophy. 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 17.History of depression. 18.NO CODE, NO CPR, NO VENT. RECOMMENDATIONS AND DISCUSSION: I recommend to continue current management and continue symptomatic treatment. Continue with broad-spectrum IV antibiotics. Closely follow with Infectious Disease. Prognosis extremely guarded because of the multiple complex medical issues. Recommend continue to monitor. Isolation. Guarded prognosis. Further recommendations to follow. MMODL / IJN: [id number] /
--- NOTE | 2018-11-17 23:26 | PN ---
PROGRESS NOTE DATE OF SERVICE: 11/17/2018 REASON FOR FOLLOWUP: Fever and question of pneumonia versus UTI. INTERVAL HISTORY: The patient is currently afebrile. Patient seemed to be more awake and alert today. He is breathing comfortably. He is unable to provide a reliable history. When asked specifically of any chest pain or cough he did not answer. No nausea, vomiting or diarrhea reported. PHYSICAL EXAMINATION: Blood pressure 108/47 with a pulse of 94, temperature 98.5. He is 92% 4 L nasal cannula. General description is an elderly male lying in bed in no distress. Respiratory system: Unlabored breathing. Decreased breath sounds at the bases, no wheeze. Heart S1, S2. Regular rate and rhythm. Abdomen soft, no tenderness. LABS: No new labs have been obtained today. Cultures are currently pending. DIAGNOSTIC IMPRESSION AND PLAN: Patient admitted to the hospital with fever and concern for possible pneumonia versus UTI. The patient is currently covered with meropenem which will continue while waiting for the culture to finalize. Continue supportive care. MMODL / IJN: [id number] /
[2018-11-18] MEDS: MORPHINE SULFATE 2 MG/ML SYRINGE IVP PRN ×8 (00:37→22:20)
[2018-11-18] MEDS: IPRATROPIUM-ALBUTEROL 3 ML NEB INHALATION SCH ×4 (08:15→19:58)
[2018-11-18] MEDS: LINAGLIPTIN 5 MG TABLET PO SCH (08:18)
[2018-11-18] MEDS: MEROPENEM 500 MG in SODIUM CHLORIDE 0.9% 100 ML IVPB SCH ×2 (08:18→19:54)
[2018-11-18] MEDS: FERROUS SULFATE 325 MG TAB PO SCH ×2 (08:18→20:02)
[2018-11-18] MEDS: LACTOBACILLUS ACIDOPH & BULGAR 1 EACH PACKET PO SCH (08:18)
[2018-11-18] MEDS: FAMOTIDINE 20 MG TAB PO SCH (08:18)
[2018-11-18] MEDS: SERTRALINE 50 MG TAB PO SCH (08:19)
[2018-11-18] MEDS: SENNOSIDES 8.6 MG TAB PO SCH (08:19)
[2018-11-18] MEDS: MULTIVITAMINS, THERA 1 EACH TAB PO SCH (08:19)
[2018-11-18] MEDS: SODIUM CHLORIDE 0.9% 1,000 ML IV SCH (13:48)
[2018-11-18] MEDS ORDERED: DILTIAZEM DRIP BOLUS FROM BAG 1 MG SOLN IV ONE (14:28)
[2018-11-18] MEDS: DILTIAZEM 125 MG in SODIUM CHLORIDE 0.9% 100 ML IV SCH (14:57)
[2018-11-18] MEDS: LISINOPRIL 5 MG TAB PO SCH (16:07)
--- NOTE | 2018-11-18 18:47 | PN ---
PROGRESS NOTE DATE OF SERVICE: 11/18/2018. I am covering for Dr. Sher. This 83-year-old gentleman who was admitted with multiple medical problems including UTI with sepsis also had features of CRE. The patient also had features of atrial fibrillation with fast ventricular rate. At this time, according to the family, the patient is currently NO CODE. Hospice was discussed previously. PAST MEDICAL HISTORY: Reviewed. REVIEW OF SYSTEMS: Could not be taken. CURRENT MEDICATIONS: 1. [place] 5 mg q.4 p.r.n. 2. DuoNeb q.i.d. and p.r.n. 3. Cardizem drip. 4. Aricept 10 mg. 5. Cymbalta 90 mg. 6. Insulin. 7. Glucotrol 2.5 mg. 8. Tradjenta. 9. Meropenem. 10.Senokot. 11.Zoloft. PHYSICAL EXAMINATION: Patient is stuporous. Patient opens eyes. Pulse is 115, blood pressure ( ), respiration 24, temperature 97.6, pulse ox 92% on 4 L. HEENT: Conjunctivae normal. Oral mucosa moist. NECK: No jugular venous distention. No lymph node enlargement. CARDIOVASCULAR: S1, S2. RESPIRATORY: Diminished breath sounds at the bases. Scattered rhonchi, no crackles. ABDOMEN: Soft, nontender. LEGS: No swelling. NERVOUS SYSTEM: Diffusely weak and contractures. LABS: WBC 21.2, hemoglobin 9.7, glucose 312. No other labs are noted. ASSESSMENT: 1. Acute urinary tract infection with sepsis possibly secondary to CRE, present on admission. 2. Change in mental status, metabolic encephalopathy, acute on chronic. 3. Atrial fibrillation with fast ventricular rate. 4. Increased WBC. 5. Renal failure possibly acute on chronic with prerenal acute tubular necrosis. 6. Chronic kidney disease Stage 3 baseline. 7. Anemia, normocytic anemia of chronic disease. 8. Troponin 0.046, indeterminate. 9. Bilateral pneumonia, possibly aspiration, acute possibly gram-negative with acute hypoxic hypercarbic respiratory failure, present on admission. 10.History of coronary artery disease. 11.Diabetes mellitus type 2. 12.Hypertension. 13.History of dementia. 14.History of prostate disorder. 15.History of gastric ulcer with no perforation. 16.History of benign prostatic hypertrophy. 17.History of CRE Enterobacter cloacae previously. 18.History of depression. 19.NO CODE, NO CPR, NO VENT. RECOMMENDATIONS AND DISCUSSION: I recommend to continue current management, continue symptomatic. Recommend initiate Cardizem drip. At this time will continue to monitor. Discussion with the hospice apparently is ongoing. I would recommend case management team and discharge planning to work closely regarding the patient's family regarding transition to hospice and possible discharge after. Otherwise prognosis extremely guarded. Consult Cardiology and Dr. Ricks's note appreciated. MMGIANFRANCOL / IJN: [id number] /
[2018-11-18] MEDS: DONEPEZIL 10 MG TAB PO SCH (20:02)
[2018-11-18] MEDS: DULoxetine HCL 30 MG CAPSULE.DR PO SCH (20:02)
[2018-11-19] MEDS: SODIUM CHLORIDE 0.9% 1,000 ML IV SCH (00:25)
[2018-11-19] MEDS: MORPHINE SULFATE 2 MG/ML SYRINGE IVP PRN ×4 (02:05→12:59)
[2018-11-19] MEDS: DILTIAZEM 125 MG in SODIUM CHLORIDE 0.9% 100 ML IV SCH (02:51)
--- NOTE | 2018-11-19 03:08 | PN ---
PROGRESS NOTE DATE OF SERVICE: 11/18/2018 REASON FOR FOLLOW UP: Pneumonia/UTI. INTERVAL HISTORY: The patient is currently afebrile. The patient has been breathing comfortably. He did have some cough. No nausea, vomiting. No abdominal pain, no diarrhea. PHYSICAL EXAMINATION: Blood pressure is 105/52 with a pulse of 100, temperature of 98, he is 94% on 4 L nasal cannula. General description is an elderly male lying in bed in no distress. Respiratory system: Unlabored breathing. Coarse breath sounds in the right side. No wheeze. Heart S1, S2. Regular rate and rhythm. Abdomen soft, no tenderness. Extremities, no edema of the feet. LABS: No new labs have been obtained. Culture currently pending. DIAGNOSTIC IMPRESSION AND PLAN: Patient admitted to the hospital with a fever with concern for possible pneumonia versus a catheter associated urinary tract infection. Culture currently pending. Patient clinically responding to meropenem. Continue while waiting for the culture to finalize. Continue supportive care. MMODL / IJN: [id number] /
--- NOTE | 2018-11-19 07:04 | P.PN ---
Subjective Progress Note Date: 11/19/18 Principal diagnosis: Pneumonia with UTI. this is a continue pressure on an 83-year-old white male with history dementia who was recently discharged for significant UTI prior to having repair of peripheral arterial disease. Family has decided not to pursue this at this time given his overall debility. We will go ahead and consult pulmonology given his congestion. No significant change and orientation today. Objective - Vital Signs Vital signs: Vital Signs Temp 98.2 F 11/19/18 03:21 Pulse 116 H 11/19/18 03:21 Resp 24 11/19/18 03:21 BP 106/56 11/19/18 03:21 Pulse Ox 96 11/19/18 03:21 Intake & Output 11/18/18 11/19/18 11/19/18 18:59 06:59 18:59 Intake Total 0 Output Total 800 2400 Balance -800 -2400 Intake: Oral 0 Output: Urine 800 2400 Other: Voiding Method Indwelling Catheter Indwelling Catheter - Constitutional General appearance: Present: average body habitus - EENT Eyes: Absent: abnormal pupil - Neck Neck: Absent: lymphadenopathy - Respiratory Respiratory: bilateral: rales, rhonchi - Cardiovascular Rhythm: regular Heart sounds: normal: S1, S2 Abnormal Heart Sounds: Absent: S3 Gallop - Gastrointestinal General gastrointestinal: Present: soft. Absent: tenderness - Psychiatric Psychiatric: Absent: A&O x's 3, intact judgment & insight - Labs CBC & Chem 7: 11/16/18 12:47 11/16/18 12:47 Labs: Microbiology - Last 24 Hours (Table) 11/16/18 13:08 Urine Culture - Final Urine,Catheterized Pseudomonas aeruginosa 11/16/18 15:07 Blood Culture - Preliminary Blood No Growth after 48 hours Assessment and Plan (1) At risk for readmission to hospital Current Visit: Yes Status: Acute Code(s): Z91.89 - OTH PERSONAL RISK FACTORS, NOT ELSEWHERE CLASSIFIED SNOMED Code(s): 2587459869404 (2) Pneumonia Current Visit: Yes Status: Acute Code(s): J18.9 - PNEUMONIA, UNSPECIFIED ORG ANISM SNOMED Code(s): 140920070 (3) Sepsis Current Visit: Yes Status: Acute Code(s): A41.9 - SEPSIS, UNSPECIFIED ORGANISM SNOMED Code(s): 30296659 (4) UTI (urinary tract infection) Current Visit: Yes Status: Acute Code(s): N39.0 - URINARY TRACT INFECTION, SITE NOT SPECIFIED SNOMED Code(s): 72452119 (5) Dementia Current Visit: No Status: Acute Code(s): F03.90 - UNSPECIFIED DEMENTIA WITHOUT BEHAVIORAL DISTURBANCE SNOMED Code(s): 88559106 (6) Retention of urine Current Visit: No Status: Acute Code(s): R33.9 - RETENTION OF URINE, UNSPECIFIED SNOMED Code(s): 243698862 Plan: Continue IV hydration. Appreciate multiple consultants input. Check CBC and CMP in a.m. Consult pulmonology. Discharge planning for possible transfer to hospice. PAD noted. Time with Patient: Greater than 30
[2018-11-19] MEDS: IPRATROPIUM-ALBUTEROL 3 ML NEB INHALATION SCH ×2 (07:55→11:41)
[2018-11-19] MEDS: LACTOBACILLUS ACIDOPH & BULGAR 1 EACH PACKET PO SCH (08:12)
[2018-11-19] MEDS: FAMOTIDINE 20 MG TAB PO SCH (08:12)
[2018-11-19] MEDS: FERROUS SULFATE 325 MG TAB PO SCH (08:12)
[2018-11-19] MEDS: SENNOSIDES 8.6 MG TAB PO SCH (08:13)
[2018-11-19] MEDS: MULTIVITAMINS, THERA 1 EACH TAB PO SCH (08:13)
[2018-11-19] MEDS: SERTRALINE 50 MG TAB PO SCH (08:13)
[2018-11-19] MEDS: LINAGLIPTIN 5 MG TABLET PO SCH (08:13)
[2018-11-19 08:33] VITALS: RESP 28
[2018-11-19] MEDS: MEROPENEM 500 MG in SODIUM CHLORIDE 0.9% 100 ML IVPB SCH (09:09)
--- NOTE | 2018-11-19 09:23 | CDI ---
THE PATIENT HAS UTI secondary to Valdivia catheter which is plates due to urinary retention MTDD
--- NOTE | 2018-11-19 09:33 | CDI ---
Documentation Clarification Form Date: 11/19/2018 9:27:32 AM From: Carlene Bell CCS, CCDS Admit Date: 11/16/2018 2:53:00 PM Patient Name: Chad Townsend Visit Number: [id number] Discharge Date: ATTENTION: The Clinical Documentation Specialists (CDI) and [facility] Coding Staff appreciate your assistance in clarifying documentation. Please respond to the clarification below the line at the bottom and electronically sign. The CDI & [facility] Coding staff will review the response and follow-up if needed. Please note: Queries are made part of the Legal Health Record. If you have any questions, please contact the author of this message via ITS. Dr. Selvin Sher: Per the admitting physician, the patient is admitted with possible aspiration pneumonia vs gram negative pneumonia. History/Risk Factors: From [facility], recurrent UTIs, BPH, CKD III, Anemia of chronic disease, CAD, DM II, Hypertension & dementia. Clinical Indicators: Presented with generalized weakness & poor appetite. Vital signs: T 99.8^, P 113^, R 18 - 30^ (non labored, SOB, shallow, tachypnea), BP 113/59, PO 95 - 10L nrb. WBC: WBC 21.6^, Hgb 9.7*, Hct 30.6*, Pl Ct 536^, Neut 19.7^, BUN 69^, Cr 3.39^ UA: positive with positive urine culture. CXR: Patchy opacity throughout the right mid & lower lung, correlate for pneumonia. Treatment: IV fluid bolus, INH Albuterol, IV Levaquin, IV Zosyn, ID consult. In order to capture the severity of condition, please clarify if the condition signifies and you are treating for: Aspiration Pneumonia Bacterial Pneumonia, specify causal organism (if known) Gram Negative Pneumonia Other bacteria (please specify) Viral Pneumonia, specify casual organism (if known) Healthcare Acquired Pneumonia/Pneumonia, unspecified Other, please specify Unable to determine (Last Revision: June 2017) the patient has element Of aspiration pneumonia MTDD
--- NOTE | 2018-11-19 10:44 | P.CRDCN ---
History of Present Illness Consult date: 11/19/18 Requesting physician: Selvin Sher Consult reason: atrial fibrillation Chief complaint: Weakness History of present illness: This is an 83-year-old gentleman most of the history was obtained from the medical record. Patient has multiple medical problems including diabetes, hypertension, memory impairment, history of CAD, diagnosed recently with CRE and was at [facility], subsequently sent to [facility] where the patient was sent here to the ER from there, patient was quite weak, and extremely confused more than his usual. Cardiology consultation was requested because the patient went into atrial fibrillation with rapid ventricular response. Chest x-ray performed on arrival here showed patchy [place] throughout the right mid and lower lung, correlate for possible pneumonia. Right-sided rib fractures. Blood pressure 120/50, heart rate 107, 92% on 3 L of oxygen, temperature 100.7. White blood cell count 21.6, hemoglobin 9.7, platelet count 536. Sodium 140 potassium 5.1, BUN 69, creatinine 3.3, troponin 0.046, albumin 2.8. Positive UTI. 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 Date of last positivie culture/infection: 09/16/18 CRE ENTEROBACTER CLOACAE CONFIRMED [facility] MDRO Source:: urine/blood Past Surgical History: Appendectomy Additional Past Surgical History / Comment(s): pt unable to recall "they were so long ago" Past Anesthesia/Blood Transfusion Reactions: No Reported Reaction Past Psychological History: Depression Smoking Status: Never smoker Past Alcohol Use History: None Reported Past Drug Use History: None Reported - Past Family History Mother History Unknown: Yes Father History Unknown: Yes Medications and Allergies Home Medications Medication Instructions Recorded Confirmed Type DULoxetine HCL [Cymbalta] 90 mg PO HS 08/24/18 11/16/18 History Donepezil [Aricept] 10 mg PO HS 08/24/18 11/16/18 History Famotidine [Pepcid] 20 mg PO DAILY 08/24/18 11/16/18 History Ferrous Sulfate [Iron (65 MG 325 mg PO BID 08/24/18 11/16/18 History Elemental)] Lisinopril [Prinivil] 5 mg PO DAILY@1400 08/24/18 11/16/18 History sitaGLIPtin PHOSPHATE [Januvia] 50 mg PO DAILY 08/24/18 11/16/18 History HYDROcodone/APAP 5-325MG [[place] 1 tab PO Q4HR PRN 11/16/18 11/16/18 History 5-325] L.acidoph,Paracasei, B.lactis 1 cap PO DAILY 11/16/18 11/16/18 History [Probiotic] Multivitamins, Thera [Multivitamin 1 tab PO DAILY 11/16/18 11/16/18 History (formulary)] Sennosides [Senna] 8.6 mg PO DAILY 11/16/18 11/16/18 History Sertraline [Zoloft] 50 mg PO DAILY 11/16/18 11/16/18 History glipiZIDE [Glucotrol XL] 2.5 mg PO DAILY 11/16/18 11/16/18 History Allergies Allergy/AdvReac Type Severity Reaction Status Date / Time No Known Allergies Allergy Verified 11/16/18 12:56 Physical Exam Vitals: Vital Signs Temp Pulse Pulse Resp BP Pulse Ox 11/19/18 09:15 99.6 F 11/19/18 08:11 98 11/19/18 07:57 104 H 11/19/18 07:45 100.7 F H 107 H 28 H 120/52 92 L 11/19/18 03:21 98.2 F 85 20 106/56 96 11/18/18 23:47 88 20 100/51 95 11/18/18 20:16 100 11/18/18 20:00 98 F 116 H 22 105/52 94 L 11/18/18 19:59 100 11/18/18 17:01 100 11/18/18 16:50 100 11/18/18 16:00 97.6 F 160 H 24 107/58 93 L 11/18/18 12:41 110 H 11/18/18 12:27 118 H 11/18/18 11:39 97.6 F 115 H 24 133/61 92 L Intake and Output 11/18/18 11/19/18 11/19/18 22:59 06:59 14:59 Intake Total 0 Output Total 400 2400 Balance -400 -2400 Intake: Oral 0 Output: Urine 400 2400 Other: Voiding Method Indwelling Catheter Indwelling Catheter Indwelling Catheter # Voids 0 PHYSICAL EXAMINATION: GENERAL: 83-year-old gentleman in no acute distress at the time of my examination HEENT: Head is atraumatic, normocephalic. Pupils equal, round. Sclera anicteric. Conjunctiva are clear. Mucous membranes of the mouth are moist. Neck is supple. There is no elevated jugular venous pressure. No carotid bruit is heard. HEART EXAMINATION: Heart S1 and S2 irregularly irregular a systolic murmur is heard CHEST EXAMINATION: On's reveal scattered coarse rhonchi with wheezing throughout ABDOMEN: Soft, nontender. Bowel sounds are heard. No organomegaly noted. EXTREMITIES: 2+ peripheral pulses with no evidence of peripheral edema and no calf tenderness noted. NEUROLOGIC patient is awake, alert and oriented 1 . . Results 11/16/18 12:47 11/16/18 12:47 Current Medications Generic Name Dose Route Start Last Admin Trade Name Freq PRN Reason Stop Dose Admin Hydrocodone Bitart/Acetaminophen 1 each 11/16/18 17:51 [place] 5-325 PO Q4HR PRN Pain Albuterol/Ipratropium 3 ml 11/16/18 16:00 11/19/18 07:55 Duoneb 0.5 Mg-3 Mg/3 Ml Soln INHALATION 3 ml RT-QID MARILIN Administration Albuterol/Ipratropium 3 ml 11/16/18 14:43 Duoneb 0.5 Mg-3 Mg/3 Ml Soln INHALATION RT-Q4H PRN shortness of breath Donepezil HCl 10 mg 11/16/18 21:00 11/18/18 20:02 Aricept PO Not Given HS MARILIN Duloxetine HCl 90 mg 11/16/18 21:00 11/18/18 20:02 Cymbalta PO Not Given HS MARILIN Famotidine 20 mg 11/17/18 09:00 11/19/18 08:12 Pepcid PO Not Given DAILY MARILIN Ferrous Sulfate 325 mg 11/16/18 21:00 11/19/18 08:12 Feosol PO Not Given BID MARILIN Glipizide 2.5 mg 11/17/18 07:30 11/19/18 04:40 Glucotrol PO Not Given AC-BRKFST MARILIN Sodium Chloride 1,000 mls @ 75 mls/hr 11/16/18 18:45 11/19/18 00:25 Saline 0.9% IV Not Given .[id number] MARILIN Meropenem 500 mg/ Sodium 100 mls @ 200 mls/hr 11/17/18 09:00 11/19/18 09:09 Chloride IVPB 200 mls/hr Q12HR MARILIN Administration Diltiazem HCl 125 mg/ Sodium 125 mls @ 10 mls/hr 11/18/18 14:30 11/19/18 02:51 Chloride IV Not Given .[id number] MARILIN 10 MG/HR Lactobacillus Acidoph/Bulgaricus 1 each 11/17/18 09:00 11/19/18 08:12 Lactinex PO Not Given DAILY MARILIN Linagliptin 5 mg 11/17/18 09:00 11/19/18 08:13 Tradjenta PO Not Given DAILY MARILIN Lisinopril 5 mg 11/17/18 14:00 11/18/18 16:07 Zestril PO Not Given DAILY@1400 [facility] Miscellaneous Information 1 each 11/16/18 14:43 Pneumonia Protocol Utilized PO ONCE PRN Per Protocol Morphine Sulfate 2 mg 11/17/18 11:58 11/19/18 09:13 Morphine Sulfate (Inj) IVP 2 mg Q2HR PRN Administration Pain/Discomfort Multivitamins 1 each 11/17/18 09:00 11/19/18 08:13 Theragran PO Not Given DAILY [facility] Senna 8.6 mg 11/17/18 09:00 11/19/18 08:13 Senokot PO Not Given DAILY MARILIN Sertraline HCl 50 mg 11/17/18 09:00 11/19/18 08:13 Zoloft PO Not Given DAILY MARILIN Intake and Output 11/18/18 11/19/18 11/19/18 22:59 06:59 14:59 Intake Total 0 Output Total 400 2400 Balance -400 -2400 Intake: Oral 0 Output: Urine 400 2400 Other: Voiding Method Indwelling Catheter Indwelling Catheter Indwelling Catheter # Voids 0 11/16/18 12:47 11/16/18 12:47 EKG Interpretations (text) Initial EKG shows a sinus tachycardia, subsequent EKG shows atrial fibrillation with rapid ventricular response, nonspecific ST-T wave changes. Assessment and Plan Plan: Assessment and plan #1 symptoms of weakness with associated fever, evidence of acute urinary tract infection #2 atrial fibrillation with rapid ventricular response, paroxysmal, new onset #3 mental status changes acute on chronic #4 acute on chronic renal failure #5 anemia #6 diabetes #7 hypertension #8 dementia #9 abnormal troponin, likely secondary to abnormal renal function and sepsis Plan We will obtain an echocardiogram with Doppler study, the patient is currently on IV Cardizem drip, he is unable to take oral medications, we will continue with the Cardizem at this time. A discussion is being made with the family regarding initiating hospice care. DNP note has been reviewed, I agree with a documented findings and plan of care. Patient was seen and examined.
[2018-11-19 13:12] VITALS: BP 115/60; PULSE 134; TEMP 98.2
--- NOTE | 2018-11-19 15:57 | PN ---
PROGRESS NOTE DATE OF SERVICE: 11/19/2018. REASON FOR FOLLOWUP: 1. Pseudomonas UTI. 2. Aspiration pneumonia. INTERVAL HISTORY: The patient did have a fever of 100.7. The patient was lethargic, gargling. No nausea, vomiting or diarrhea reported by the nursing staff. He was unable to provide any history. PHYSICAL EXAMINATION: Blood pressure 115/60 with a pulse of 134, temperature 98.2. He is 92% on 5 L nasal cannula. General description is an elderly male lying in bed in no distress. RESPIRATORY SYSTEM: Unlabored breathing. Coarse breath sounds on the right side. No wheeze. HEART: S1, S2. Regular rate and rhythm. ABDOMEN: Soft. No tenderness. LABS: Urine has been finalized with multi-resistant pseudomonas. Blood culture has been negative. DIAGNOSTIC IMPRESSION AND PLAN: Patient admitted to hospital with sepsis. Source is likely catheter-associated urinary tract infection; urine with now multi-resistant pseudomonas and possible aspiration pneumonia. discontinue the meropenem, switch him over to [place] to cover for this pathogen. However, in view of overall poor prognosis, recommend hospice- oriented care. This were discussed in detail with the patient's nurse, who is trying to be in contact with the patient's family in [place]. MMODL / IJN: [id number] /
--- NOTE | 2018-11-19 18:51 | P.CNPUL ---
History of Present Illness Consult date: 11/19/18 Reason for consult: dyspnea, cough, pneumonia Chief complaint: Suspect sepsis aspiration pneumonia History of present illness: Patient seen eval reexamined in the morning Patient is a 83-year-old male with the past medical history significant for hypertension and diabetes mellitus chronic dementia history of coronary artery disease a shunt was unable to give any history due to her poor mental status data predominantly obtained from the chart, patient was initially admitted at [facility], subsequently sent to [facility] where the patient was sent here to the ER from there, patient was quite weak, and extremely confused more than his usual. Cardiology consultation was requested because the patient went into atrial fibrillation with rapid ventricular response. Chest x- ray performed on arrival here showed patchy [place] throughout the right mid and lower lung, correlate for possible pneumonia. Right-sided rib fractures. Blood pressure 120/50, heart rate 107, 92% on 3 L of oxygen, tem perature 100.7. White blood cell count 21.6, hemoglobin 9.7, platelet count 536. Sodium 140 potassium 5.1, BUN 69, creatinine 3.3, troponin 0.046, albumin 2.8. Positive UTI. 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 Date of last positivie culture/infection: 09/16/18 CRE ENTEROBACTER CLOACAE CONFIRMED [facility] MDRO Source:: urine/blood Past Surgical History: Appendectomy Additional Past Surgical History / Comment(s): pt unable to recall "they were so long ago" Past Anesthesia/Blood Transfusion Reactions: No Reported Reaction Past Psychological History: Depression Smoking Status: Never smoker Past Alcohol Use History: None Reported Past Drug Use History: None Reported - Past Family History Mother History Unknown: Yes Father History Unknown: Yes Medications and Allergies Home Medications Medication Instructions Recorded Confirmed Type DULoxetine HCL [Cymbalta] 90 mg PO HS 08/24/18 11/19/18 History Donepezil [Aricept] 10 mg PO HS 08/24/18 11/19/18 History Famotidine [Pepcid] 20 mg PO DAILY 08/24/18 11/19/18 History Ferrous Sulfate [Iron (65 MG 325 mg PO BID 08/24/18 11/19/18 History Elemental)] Lisinopril [Prinivil] 5 mg PO DAILY@1400 08/24/18 11/19/18 History sitaGLIPtin PHOSPHATE [Januvia] 50 mg PO DAILY 08/24/18 11/19/18 History HYDROcodone/APAP 5-325MG [[place] 1 tab PO Q4HR PRN 11/16/18 11/19/18 History 5-325] L.acidoph,Paracasei, B.lactis 1 cap PO DAILY 11/16/18 11/19/18 History [Probiotic] Multivitamins, Thera [Multivitamin 1 tab PO DAILY 11/16/18 11/19/18 History (formulary)] Sennosides [Senna] 8.6 mg PO DAILY 11/16/18 11/19/18 History Sertraline [Zoloft] 50 mg PO DAILY 11/16/18 11/19/18 History glipiZIDE [Glucotrol XL] 2.5 mg PO DAILY 11/16/18 11/19/18 History Allergies Allergy/AdvReac Type Severity Reaction Status Date / Time No Known Allergies Allergy Verified 11/19/18 14:06 Physical Exam Vitals: Vital Signs Temp Pulse Pulse Resp BP Pulse Ox 11/19/18 12:25 98.2 F 134 H 28 H 115/60 92 L 11/19/18 11:57 104 H 11/19/18 11:43 102 H 11/19/18 09:15 99.6 F 11/19/18 08:11 98 11/19/18 07:57 104 H 11/19/18 07:45 100.7 F H 107 H 28 H 120/52 92 L 11/19/18 03:21 98.2 F 85 20 106/56 96 11/18/18 23:47 88 20 100/51 95 11/18/18 20:16 100 11/18/18 20:00 98 F 116 H 22 105/52 94 L 11/18/18 19:59 100 Intake and Output 11/19/18 11/19/18 11/19/18 06:59 14:59 22:59 Intake Total 600 Output Total 2400 Balance -2400 600 Intake: IV 600 Sodium Chloride 0.9% 1, 600 000 ml @ 75 mls/hr IV . [id number] [facility] Rx#:[id number] Output: Urine 2400 Other: Voiding Method Indwelling Catheter Indwelling Catheter # Voids 0 # Bowel Movements 0 GENERAL: 83-year-old gentleman in no acute distress at the time of my examination HEENT: Head is atraumatic, normocephalic. Pupils equal, round. Sclera anicteric. Conjunctiva are clear. Mucous membranes of the mouth are moist. Neck is supple. There is no elevated jugular venous pressure. No carotid bruit is heard. HEART EXAMINATION: Heart S1 and S2 irregularly irregular a systolic murmur is heard CHEST EXAMINATION: On's reveal scattered coarse rhonchi with wheezing throughout ABDOMEN: Soft, nontender. Bowel sounds are heard. No organomegaly noted. EXTREMITIES: 2+ peripheral pulses with no evidence of peripheral edema and no calf tenderness noted. NEUROLOGIC patient is awake, alert and oriented 1 . Results - Laboratory Findings CBC and BMP: 11/16/18 12:47 11/16/18 12:47 PT/INR, D-dimer PT 11.2 sec (9.0-12.0) 11/16/18 12:47 INR 1.1 (<1.2) 11/16/18 12:47 Abnormal lab findings: Abnormal Labs 11/16/18 11/16/18 11/16/18 12:47 12:47 12:47 WBC 21.6 H RBC 3.29 L Hgb 9.7 L Hct 30.6 L RDW 15.7 H Plt Count 536 H Neutrophils # 19.7 H Lymphocytes # 0.7 L APTT 20.0 L BUN 69 H Creatinine 3.39 H Glucose 209 H POC Glucose (mg/dL) Troponin I Albumin 2.8 L Urine Protein Urine Blood Ur Leukocyte Esterase Urine RBC Urine WBC Urine WBC Clumps Urine Bacteria 11/16/18 11/16/18 11/17/18 12:47 13:08 07:35 WBC RBC Hgb Hct RDW Plt Count Neutrophils # Lymphocytes # APTT BUN Creatinine Glucose POC Glucose (mg/dL) 312 H Troponin I 0.046 H* Albumin Urine Protein 2+ H Urine Blood Moderate H Ur Leukocyte Esterase Large H Urine RBC 173 H Urine WBC >182 H Urine WBC Clumps Many H Urine Bacteria Many H - Diagnostic Findings Chest x-ray: report reviewed, image reviewed (Elevated right hemidiaphragm with low lung volume right lower lobe developing pneumonia right-sided rib fracture 6, 7, 8, 9) Assessment and Plan Assessment: Altered mental status multifactorial processes including due to sepsis due to Pseudomonas urinary tract infection and aspiration pneumonia and baseline dementia Pseudomonas urinary tract infection Right lower lobe developing pneumonia Acute on Chronic atrial fibrillation and rapid ventricular response Chronic anemia Hypertension and hypertensive cardiovascular disease Elevated troponin Plan: Prognosis overall very poor, continue supportive care noted that patient is appropriately considered for hospice we'll be available as needed
--- NOTE | 2018-11-21 06:30 | ECHOF ---
Referral Reason:afib MEASUREMENTS -------- HEIGHT: 177.8 cm WEIGHT: 67.1 kg BP: 120/52 RVIDd: 3.3 cm (< 3.3) IVSd: 1.2 cm (0.6 - 1.1) LVIDd: 3.8 cm (3.9 - 5.3) LVPWd: 1.1 cm (0.6 - 1.1) IVSs: 1.6 cm LVIDs: 2.7 cm LVPWs: 1.7 cm LA Diam: 3.4 cm (2.7 - 3.8) Ao Diam: 3.6 cm (2.0 - 3.7) AV Cusp: 1.8 cm (1.5 - 2.6) EPSS: 1.2 cm RAP: 5.00 mmHg RVSP: 37.58 mmHg MV EF SLOPE: 139.54 mm/s (70 - 150) MV EXCURSION: 2.02 cm (> 18.000) FINDINGS -------- Atrial fibrillation. This was a technically adequate study. The left ventricular size is normal. There is borderline concentric left ventricular hypertrophy. Overall left ventricular systolic function is normal with, an EF between 60 - 65 %. The right ventricle is normal in size. The left atrial size is normal. The right atrium is normal in size and function. Interatrial and interventricular septum intact. There is mild aortic valve sclerosis without stenosis. The mitral valve leaflets are mildly thickened. Mild tricuspid regurgitation present. There is mild pulmonary hypertension. The right ventricular systolic pressure, as measured by Doppler, is 37.58mmHg. The pulmonic valve was not well visualized. The aortic root size is normal. The inferior vena cava was not well visualized. CONCLUSIONS -------- 1. Atrial fibrillation. 2. This was a technically adequate study. 3. The left ventricular size is normal. 4. There is borderline concentric left ventricular hypertrophy. 5. Overall left ventricular systolic function is normal with, an EF between 60 - 65 %. 6. The right ventricle is normal in size. 7. The left atrial size is normal. 8. The right atrium is normal in size and function. 9. Interatrial and interventricular septum intact. 10. There is mild aortic valve sclerosis without stenosis. 11. The mitral valve leaflets are mildly thickened. 12. Mild tricuspid regurgitation present. 13. There is mild pulmonary hypertension. 14. The right ventricular systolic pressure, as measured by Doppler, is 37.58mmHg. 15. The pulmonic valve was not well visualized. 16. The aortic root size is normal. 17. The inferior vena cava was not well visualized. [employer] OFFICER: NATHANIEL Whitaker
== END 2018-11-19 13:48 | disposition hospice, inpatient (51) | DRG 698 ==
LOC: EC 12:24 → EEVIPCON 12:24 → 3NMEDONC 14:53 → 3SCARD 15:24
PROVIDERS: ADMIT Family Medicine; ATTEND Family Medicine
DX: T83.511A Infection and inflammatory reaction due to indwelling urethral catheter, initial encounter (principal); A41.52 Sepsis due to Pseudomonas; G93.41 Metabolic encephalopathy; J69.0 Pneumonitis due to inhalation of food and vomit; N17.0 Acute kidney failure with tubular necrosis; J96.01 Acute respiratory failure with hypoxia; S22.41XA Multiple fractures of ribs, right side, initial encounter for closed fracture; E11.52 Type 2 diabetes mellitus with diabetic peripheral angiopathy with gangrene; I96 Gangrene, not elsewhere classified; N39.0 Urinary tract infection, site not specified; D63.8 Anemia in other chronic diseases classified elsewhere; E11.22 Type 2 diabetes mellitus with diabetic chronic kidney disease; E11.51 Type 2 diabetes mellitus with diabetic peripheral angiopathy without gangrene; F03.90 Unspecified dementia, unspecified severity, without behavioral disturbance, psychotic disturbance, mood disturbance, and anxiety; I13.10 Hypertensive heart and chronic kidney disease without heart failure, with stage 1 through stage 4 chronic kidney disease, or unspecified chronic kidney disease; I25.10 Atherosclerotic heart disease of native coronary artery without angina pectoris; I48.2 Chronic atrial fibrillation; N18.3 Chronic kidney disease, stage 3 (moderate); N40.0 Benign prostatic hyperplasia without lower urinary tract symptoms; Z66 Do not resuscitate; Z51.5 Encounter for palliative care; Z79.84 Long term (current) use of oral hypoglycemic drugs; Z79.899 Other long term (current) drug therapy; Z87.11 Personal history of peptic ulcer disease; Z87.440 Personal history of urinary (tract) infections; R40.2142 Coma scale, eyes open, spontaneous, at arrival to emergency department; R40.2362 Coma scale, best motor response, obeys commands, at arrival to emergency department; R40.2242 Coma scale, best verbal response, confused conversation, at arrival to emergency department; Y84.6 Urinary catheterization as the cause of abnormal reaction of the patient, or of later complication, without mention of misadventure at the time of the procedure
CPT/HCPCS: 36415; 51702; 71045; 80053; 81001; 83605; 83735; 84443; 84484; 85025; 85610; 85730; 87040; 87077; 87086; 87186; 93005; 93306; 94640; 96361; 96365; 99291

== ENCOUNTER 2018-11-19 12:52 | Inpatient (IN) | payer MEDICAID ==
[2018-11-19] MEDS ORDERED: ONDANSETRON 4 MG/2 ML VIAL IVP PRN (12:56)
[2018-11-19] MEDS ORDERED: ACETAMINOPHEN SUPPOSITORY 650 MG SUPP RECTAL PRN (12:56)
[2018-11-19] MEDS ORDERED: LORazepam 2 MG/ML INJ IV PRN (12:56)
[2018-11-19] MEDS ORDERED: SCOPOLAMINE 1.5MG/72HR PATCH TRANSDERM SCH (13:30)
[2018-11-19] MEDS: MORPHINE SULFATE (100 MG/2 ML) 100 MG in SODIUM CHLORIDE 0.9% 100 ML IV SCH (14:12)
[2018-11-19 14:28] VITALS: BMI 21.3
[2018-11-19] MEDS: ATROPINE OPHTH SOLN 1% 5ML BTL SUBLINGUAL PRN (23:42)
--- NOTE | 2018-11-20 08:39 | P.DS ---
Providers Date of admission: 11/19/18 13:52 Attending physician: Selvin Sher Primary care physician: Trenton Pradhan Hospital Course: This is a continue present 83-year-old white male essentially admitted for pneumonia and UTI urinary retention. The patient had significant decline during this hospitalization and was able to pass feeding and swallowing. After discussion with case management, the patient's family has decided for transfer to hospice. The patient will be discharged to hospice care to follow-up with me as needed. Os this is a poor Patient Condition at Discharge: Poor Plan - Discharge Summary Discharge Rx Participant: No New Discharge Prescriptions: New Atropine Ophth Soln 1% 5Ml [Isopto Atropine 1% 5Ml] 2 drops SUBLINGUAL Q4HR PRN bottle PRN Reason: Excess Secretions Scopolamine 1.5MG/72Hr Patch [TransDerm [place]] 1 patch TRANSDERM Q72H patch Acetaminophen Suppository [Tylenol Suppository] 650 mg RECTAL Q4HR PRN supp PRN Reason: Fever And/Or Mild Pain Continue sitaGLIPtin PHOSPHATE [Januvia] 50 mg PO DAILY Lisinopril [Prinivil] 5 mg PO DAILY@1400 Ferrous Sulfate [Iron (65 MG Elemental)] 325 mg PO BID Famotidine [Pepcid] 20 mg PO DAILY Donepezil [Aricept] 10 mg PO HS DULoxetine HCL [Cymbalta] 90 mg PO HS HYDROcodone/APAP 5-325MG [[place] 5-325] 1 tab PO Q4HR PRN PRN Reason: Pain Sertraline [Zoloft] 50 mg PO DAILY Sennosides [Senna] 8.6 mg PO DAILY Multivitamins, Thera [Multivitamin (formulary)] 1 tab PO DAILY L.acidoph,Paracasei, B.lactis [Probiotic] 1 cap PO DAILY glipiZIDE [Glucotrol XL] 2.5 mg PO DAILY Discharge Medication List DULoxetine HCL [Cymbalta] 90 mg PO HS 08/24/18 [History] Donepezil [Aricept] 10 mg PO HS 08/24/18 [History] Famotidine [Pepcid] 20 mg PO DAILY 08/24/18 [History] Ferrous Sulfate [Iron (65 MG Elemental)] 325 mg PO BID 08/24/18 [History] Lisinopril [Prinivil] 5 mg PO DAILY@1400 08/24/18 [History] sitaGLIPtin PHOSPHATE [Januvia] 50 mg PO DAILY 08/24/18 [History] HYDROcodone/APAP 5-325MG [[place] 5-325] 1 tab PO Q4HR PRN 11/16/18 [History] L.acidoph,Paracasei, B.lactis [Probiotic] 1 cap PO DAILY 11/16/18 [History] Multivitamins, Thera [Multivitamin (formulary)] 1 tab PO DAILY 11/16/18 [History] Sennosides [Senna] 8.6 mg PO DAILY 11/16/18 [History] Sertraline [Zoloft] 50 mg PO DAILY 11/16/18 [History] glipiZIDE [Glucotrol XL] 2.5 mg PO DAILY 11/16/18 [History] Acetaminophen Suppository [Tylenol Suppository] 650 mg RECTAL Q4HR PRN supp 11/20/18 [Rx] Atropine Ophth Soln 1% 5Ml [Isopto Atropine 1% 5Ml] 2 drops SUBLINGUAL Q4HR PRN bottle 11/20/18 [Rx] Scopolamine 1.5MG/72Hr Patch [TransDerm [place]] 1 patch TRANSDERM Q72H patch 11/20/18 [Rx] Discharge Disposition: HOME WITH HOSPICE
[2018-11-20] MEDS: MORPHINE SULFATE (100 MG/2 ML) 100 MG in SODIUM CHLORIDE 0.9% 100 ML IV SCH (09:54)
[2018-11-20] MEDS: GLYCOPYRROLATE 0.2 MG/ML 2 ML VIAL IVP PRN ×2 (12:12→17:59)
[2018-11-20] MEDS: ATROPINE OPHTH SOLN 1% 5ML BTL SUBLINGUAL PRN ×2 (12:13→17:58)
[2018-11-20 15:55] VITALS: TEMP 100
[2018-11-20 23:20] VITALS: PULSE 141; RESP 8
== END 2018-11-21 03:30 | disposition expired | DRG 951 ==
LOC: 3SCARD 13:52
PROVIDERS: ADMIT Family Medicine; ATTEND Family Medicine
DX: Z51.5 Encounter for palliative care (principal); A41.9 Sepsis, unspecified organism; J18.9 Pneumonia, unspecified organism; G93.41 Metabolic encephalopathy; N17.0 Acute kidney failure with tubular necrosis; N39.0 Urinary tract infection, site not specified; Z66 Do not resuscitate; N18.3 Chronic kidney disease, stage 3 (moderate); E11.22 Type 2 diabetes mellitus with diabetic chronic kidney disease; D63.8 Anemia in other chronic diseases classified elsewhere; F03.90 Unspecified dementia, unspecified severity, without behavioral disturbance, psychotic disturbance, mood disturbance, and anxiety; I12.9 Hypertensive chronic kidney disease with stage 1 through stage 4 chronic kidney disease, or unspecified chronic kidney disease; F32.9 Major depressive disorder, single episode, unspecified; N40.0 Benign prostatic hyperplasia without lower urinary tract symptoms; I25.10 Atherosclerotic heart disease of native coronary artery without angina pectoris; Z87.11 Personal history of peptic ulcer disease; Z86.19 Personal history of other infectious and parasitic diseases; Z79.84 Long term (current) use of oral hypoglycemic drugs; Z79.899 Other long term (current) drug therapy